=== PATIENT | female | born 1980 | race Caucasian/White ===

== ENCOUNTER 2016-04-19 22:29 | Emergency (ER) | payer BC ==
[~2016-04-19] VITALS: Ht 165.1 cm; Wt 93.9 kg
[~2016-04-19 22:29] MED LIST: CLX/20 PO; LACT10CA3 PO; LATA0.009 OPB; MULT-513 PO; OMEP20CA9 PO
[2016-04-19 22:32] VITALS: TEMP 36.9; Ht 165.1 cm; Wt 93.9 kg
[2016-04-19] MEDS ORDERED: ASPIRIN 324 MG CHEW PO STA (22:44)
[2016-04-19] MEDS ORDERED: MoRPHine SULFATE 4 MG/ML 1 ML CARP\\VIAL IV STA (22:44)
[2016-04-19] MEDS ORDERED: SODIUM CHLORIDE 0.9% 1000ML 1,000 ML IV STA (22:44)
--- NOTE | 2016-04-19 22:50 | EMERGENCY ROOM VISIT NOTE ---
History First contact with patient: 22:36 Chief Complaint: CHEST PAIN Stated Complaint: CHEST PAINS GOING TO THE NECK SICK TO STOMACH History of Present Illness The patient is a 36 year old female who presents to the Emergency Room with complaints of chest pain. The patient states she developed left-sided chest pain suddenly approximately 1 hour ago. She states the pain is in the left side of the chest and radiates into the left shoulder. She states she also has pain in the right shoulder and right jaw. She rates her discomfort a 7/10. The pain is worse with movement of the left arm. It is not worse with walking. She states that she keeps burping. The patient feels very short of breath. She denies any headache or neck pain. She denies any numbness, tingling or weakness. She reports nausea. The patient one on a cruise recently. She did have a 2-1/[address] The patient denies any fever or chills. She denies any falls or injuries. She denies any recent earache, sore throat or cough. She denies any diarrhea. She has had appendectomy and cholecystectomy in the past. Review of Systems A 10 system review of systems was completed with positives and pertinent negatives listed in the HPI. Past Medical/Surgical History Surgical Problems: (1) H/O: hysterectomy (2) S/P tonsillectomy and adenoidectomy Family History Gallbladder disease Heart disease Social History Smoking Status: Never Smoker Alcohol Use: none Drug Use: none Marital Status: Housing Status: lives with family Current/Historical Medications Scheduled Latanoprost (Xalatan 0.005% Oph Yomaira), 1 DROP OPB HS Multivitamins/Minerals (Mvi With Minerals), 1 TAB PO DAILY Scheduled PRN Hydrocodone/Acetaminophen 5MG/325MG ([place] 5MG/325MG), 1 TABLET PO Q6 PRN for Pain Allergies Coded Allergies: Penicillins (Verified Allergy, Intermediate, HIVES, 04/19/16) Physical Exam Vital Signs Date Time Temp Pulse Resp B/P Pulse Ox O2 Delivery O2 Flow Rate FiO2 04/20/16 00:04 81 18 138/92 95 Room Air 04/19/16 22:57 86 04/19/16 22:32 36.9 80 18 149/89 96 Room Air Physical Exam VITALS: Vitals are noted on the nurse's note and reviewed by myself. Vital signs stable. The patient is afebrile. GENERAL: This is a 36-year-old female, in no acute distress, nondiaphoretic, well-developed well-nourished. SKIN: The skin was diaphoretic, without rashes, erythema, edema, or bruising. There is no tenting of the skin. Capillary reflex less than 2 seconds. HEAD: Normocephalic atraumatic. EARS: The external ears are normal in appearance. EYES: Pupils equal round and reactive to light and accommodation. Conjunctivae without injection, sclerae without icterus. Extraocular movements intact. NOSE: Patent, turbinates without inflammation or discharge. MOUTH: Mucous membranes moist. Tonsils are not enlarged. Pharynx without erythema or exudate. Uvula midline. Airway patent. Tongue does not deviate. NECK: Supple without nuchal rigidity. No JVD. HEART: Regular rate and rhythm without murmurs gallops or rubs. LUNGS: Clear to auscultation bilaterally without wheezes, rales or rhonchi. No retractions or accessory muscle use. ABDOMEN: Positive bowel sounds x 4. Soft, nontender, without masses or organomegaly. MUSCULOSKELETAL: No muscle atrophy, erythema, or edema noted. Full range of motion in all extremities. Normal gait. Strength 5/5 throughout. NEURO: Patient was alert and oriented to person place and time. No focal neurological deficits. Medical Decision & Procedures ER Provider Diagnostic Interpretation: CTA of the chest was reviewed by stat read was negative for pulmonary embolus. Laboratory Results 04/19/16 22:57 Red Blood Count 4.60, Mean Corpuscular Volume 88.5, Mean Corpuscular Hemoglobin 30.4, Mean Corpuscular Hemoglobin Concent 34.4, Mean Platelet Volume 9.2, Neutrophils (%) (Auto) 49.3, Lymphocytes (%) (Auto) 42.7, Monocytes (%) (Auto) 4.8, Eosinophils (%) (Auto) 2.8, Basophils (%) (Auto) 0.2, Neutrophils # (Auto) 4.63, Lymphocytes # (Auto) 4.01, Monocytes # (Auto) 0.45, Eosinophils # (Auto) 0.26, Basophils # (Auto) 0.02 04/19/16 22:57 Test 04/19/16 22:57 04/20/16 00:00 04/20/16 00:18 White Blood Count 9.39 K/uL (4.8-10.8) Red Blood Count 4.60 M/uL (4.2-5.4) Hemoglobin 14.0 g/dL (12.0-16.0) Hematocrit 40.7 % (37-47) Mean Corpuscular Volume 88.5 fL (80-100) Mean Corpuscular Hemoglobin 30.4 pg (25-34) Mean Corpuscular Hemoglobin Concent 34.4 g/dl (32-36) Platelet Count 279 K/uL (130-400) Mean Platelet Volume 9.2 fL (7.4-10.4) Neutrophils (%) (Auto) 49.3 % Lymphocytes (%) (Auto) 42.7 % Monocytes (%) (Auto) 4.8 % Eosinophils (%) (Auto) 2.8 % Basophils (%) (Auto) 0.2 % Neutrophils # (Auto) 4.63 K/uL (1.4-6.5) Lymphocytes # (Auto) 4.01 K/uL (1.2-3.4) Monocytes # (Auto) 0.45 K/uL (0.11-0.59) Eosinophils # (Auto) 0.26 K/uL (0-0.5) Basophils # (Auto) 0.02 K/uL (0-0.2) Bedside Hemoglobin 13.6 g/dl (12.0-16.0) Bedside Hematocrit 40 % (37-47) RDW Standard Deviation 41.1 fL (36.4-46.3) RDW Coefficient of Variation 12.8 % (11.5-14.5) Immature Granulocyte % (Auto) 0.2 % Immature Granulocyte # (Auto) 0.02 K/uL (0.00-0.02) Prothrombin Time 10.3 SECONDS (9.0-12.0) Prothromb Time International Ratio 1.0 (0.9-1.1) Activated Partial Thromboplast Time 27.0 SECONDS (21.0-31.0) Partial Thromboplastin Ratio 1.0 Bedside Sodium 140 mEq/L (135-144) Bedside Potassium 4.0 mEq/L (3.3-5.0) Bedside Chloride 104 mEq/L (101-112) Bedside Total CO2 23 mEq/l (24-31) Anion Gap 18.0 mmol/L (16-25) Bedside Blood Urea Nitrogen 17 mg/dl (7-18) Bedside Creatinine 0.7 mg/dl (0.6-1.3) Est Creatinine Clear Calc Drug Dose 108.5 ml/min Estimated GFR () 107.5 Estimated GFR (Non- 92.7 BUN/Creatinine Ratio 18.3 (10-20) Bedside Glucose (other) 112 mg/dl (70-99) Calcium Level 9.2 mg/dl (8.5-10.1) Bedside Ionized Calcium (Srinath) 1.27 mmol/l (1.12-1.32) Total Bilirubin 0.2 mg/dl (0.2-1) Aspartate Amino Transf (AST/SGOT) 26 U/L (15-37) Alanine Aminotransferase (ALT/SGPT) 57 U/L (12-78) Alkaline Phosphatase 76 U/L (45-117) Total Creatine Kinase 297 U/L (26-192) Creatine Kinase MB 2.9 ng/ml (0.5-3.6) Creatine Kinase MB Ratio 1.0 (0-3.0) Total Protein 7.6 gm/dl (6.4-8.2) Albumin 4.0 gm/dl (3.4-5.0) Globulin 3.6 gm/dl (2.5-4.0) Albumin/Globulin Ratio 1.1 (0.9-2) Thyroid Stimulating Hormone (TSH) 3.690 uIu/ml (0.300-4.500) Urine Color YELLOW Urine Appearance CLEAR (CLEAR) Urine pH 6.0 (4.5-7.5) Urine Specific [place] 1.043 (1.000-1.030) Urine Protein NEG (NEG) Urine Glucose (UA) NEG (NEG) Urine Ketones NEG (NEG) Urine Occult Blood NEG (NEG) Urine Nitrite NEG (NEG) Urine Bilirubin NEG (NEG) Urine Urobilinogen NEG (NEG) Urine Leukocyte Esterase NEG (NEG) Medications Administered Medications (Trade) Dose Ordered Sig/Luciano Route Start Time Stop Time Status Last Admin Dose Admin Sodium Chloride (Nss 1000ml) 1,000 ml @ 999 mls/hr Q1H1M STAT IV 04/19/16 22:44 04/19/16 23:44 DC 2/2/17 22:44 999 MLS/HR Morphine Sulfate (MoRPHine SULFATE INJ) 4 mg NOW STAT IV 04/19/16 22:44 04/19/16 22:47 DC 04/19/16 22:44 4 MG Aspirin (Aspirin Chew) 324 mg NOW STAT PO 04/19/16 22:44 04/19/16 22:47 DC 04/19/16 22:44 324 MG Ketorolac Tromethamine (Toradol Inj) 30 mg NOW STAT IV 04/20/16 00:15 04/20/16 00:16 DC 04/20/16 00:15 30 MG Procedure The patient was monitored on a child monitor. They maintained a normal sinus rhythm without ectopy. ECG Indication: chest pain Rate (beats per minute): 76 Rhythm: normal sinus Findings: no acute ischemic change Change: no significant change ED Course The patient was seen and examined. Previous visits were reviewed. The patient does not have a fever or leukocytosis. She does not have any significant electrolyte abnormality. Initial troponin was not elevated. TSH was within normal limits. CPK was 297. INR was 1.0. CTA of the chest was negative for pulmonary embolus EKG did not reveal any acute arrhythmia or ischemia The patient was given 4 mg IV morphine with improvement in her pain She was then given 30 mg IV Toradol A repeat troponin was ordered. At the time of sign out, the repeat troponin was pending. A urinalysis was pending. The case was signed out to Alicia Chapa PA-C. Please see her dictation for results and disposition. I did reassess the patient before sign out. The patient is markedly tender to palpation over the chest wall on the pain is completely reproducible with palpation and movement of the left arm. This is likely musculoskeletal in nature. The patient will be given a prescription for Agendia. She should follow- up with her family doctor for further evaluation and management if symptoms are not improving. She should return with any worsening symptoms. Medical Decision DIFFERENTIAL DIAGNOSIS: Aortic dissection, myocarditis, pericarditis, cervical disc disease, costochondritis, herpes zoster, rib fracture, pleuritis, pneumonia , pulmonary embolus, tension pneumothorax, anxiety disorder, somatoform disorder , choledocholithiasis, status, esophagitis, esophageal spasm, esophageal reflux , esophageal rupture, pancreatitis, peptic ulcer disease, cardiac ischemia, ST elevation CT, acute coronary syndrome, arrhythmia, coronary artery vasospasm. vavular heart disease, coronary artery disease, among others. [facility] [facility] Monitoring [facility] Search Results: patient reviewed within database, no issues identified Impression Primary Impression: Chest wall pain Additional Impressions: Dyspnea Precordial chest pain Departure Information Dispostion Home / Self-Care Condition GOOD Prescriptions Hydrocodone/Acetaminophen 5MG/325MG ([place] 5MG/325MG) Tab 1 TABLET PO Q6 Y for Pain, #12 TAB For Initial Treatment Prov: Heidy Kaur PA-C 04/20/16 Referrals RV. Frazier MD (PCP) Patient Instructions Chest [facility] - [facility] Additional Instructions Ibuprofen 600 mg every 6-8 hours for moderate pain [place] 1 tablet every 6 hours if needed for worse pain. Do not drink or drive while taking [place] and do not take with Tylenol. Contact your family doctor tomorrow to schedule a follow-up appointment for further evaluation and management Return to the emergency Department with any worsening symptoms Problem Qualifiers Additional Impressions: Dyspnea Dyspnea type: shortness of breath Qualified Codes: R06.02 - Shortness of breath
[2016-04-19] MEDS ORDERED: OPTIRAY 320 IV PRN (23:15)
[2016-04-19 23:17] LABS: BASO % 0.2 %; BASO ABS # 0.02 K/uL (0-0.2); COMPLETE YES; EOS % 2.8 %; HEMATOCRIT 40.7 % (37-47); IG% 0.2 %; LYMPH % 42.7 %; LYMPH ABS # 4.01 K/uL (1.2-3.4); MEAN CELL VOLUME 88.5 fL (80-100); MEAN CORPUSCULAR HEMOGLOBIN 30.4 pg (25-34); MEAN CORPUSCULAR HGB CONC 34.4 g/dl (32-36); MEAN PLATELET VOLUME 9.2 fL (7.4-10.4); MONO % 4.8 %; NEUT % 49.3 %; PLATELET COUNT 279 K/uL (130-400); WHITE BLOOD COUNT 9.39 K/uL (4.8-10.8)
[2016-04-19 23:29] LABS: ISTAT CREATININE 0.7 mg/dl (0.6-1.3); ISTAT HEMOGLOBIN 13.6 g/dl (12.0-16.0); ISTAT IONIZED CALCIUM 1.27 mmol/l (1.12-1.32)
[2016-04-19 23:34] LABS: PROTHROMBIN TIME (PATIENT) 10.3 SECONDS (9.0-12.0)
[2016-04-19 23:36] LABS: ALT/SGPT 57 U/L (12-78); BLOOD UREA NITROGEN 15 mg/dl (7-18); BUN/CREATININE RATIO 18.3 (10-20); CALCIUM 9.2 mg/dl (8.5-10.1); CARBON DIOXIDE 24 mmol/L (21-32); CHLORIDE 107 mmol/L (98-107); CREATININE 0.82 mg/dl (0.60-1.20); GLUCOSE 104 mg/dl (70-99); SODIUM 140 mmol/L (136-145)
[2016-04-19 23:46] LABS: ALB/GLOB RATIO 1.1 (0.9-2); ALKALINE PHOSPHATASE 76 U/L (45-117); AST/SGOT 26 U/L (15-37)
[2016-04-20] MEDS ORDERED: KETOROLAC TROMETHAMINE 30 MG/ML VIAL IV STA (00:15)
[2016-04-20 00:37] LABS: URINE APPEARANCE CLEAR (CLEAR); URINE BILIRUBIN NEG (NEG); URINE COLOR YELLOW; URINE NITRITE NEG (NEG); URINE SPECIFIC GRAVITY 1.043 (1.000-1.030); UROBILINOGEN NEG (NEG); ZZUR CULT IF INDIC CLEAN CATCH NO
[2016-04-20] MEDS ORDERED: HYDR-5688 PO (00:39)
[2016-04-20 00:43] LABS: MANUAL MICROSCOPIC REQUIRED? NO; REVIEW REQ? NO
[2016-04-20] MEDS ORDERED: NORCO 5/325MG HOME PACK PO ONE (00:45)
--- NOTE | 2016-04-20 01:21 | EMERGENCY ROOM VISIT NOTE ---
ED Visit Note This case was signed out to me pending repeat troponin and reevaluation in stable condition. Patient had episode of chest pain today. 2 sets of negative troponins. Unremarkable workup as above. Negative CTA. Diagnosis #1 acute precordial chest pain Ibuprofen(Motrin, Advil) may be used for fever or pain. Use 600mg every six hours as needed. Take with food. Avoid using more than 2400mg in a 24 hour period. Do not use 2400mg per day for more than three consecutive days without physician direction. Prolonged inappropriate use can lead to stomach upset or ulcers. (AND/OR) Acetaminophen(Tylenol) may be used for fever or pain. Use 1000mg every six hours as needed. Avoid using more than 3000mg in a 24 hour period. Rest and drink plenty of fluids as tolerated. Continue current medications. Avoid strenuous activities and anything that worsens your pain. Resume normal activities once your symptoms resolve. Return to the ER immediately for worsening or persistent chest pain, abdominal pain, vomiting, fevers, chest pains, difficulty breathing, worsening of your condition, or as needed. Follow up with your primary physician in 2-3 days for a recheck of your current condition. Problem List Surgical Problems: (1) H/O: hysterectomy Status: Resolved (2) S/P tonsillectomy and adenoidectomy Status: Resolved Current/Historical Medications Scheduled Latanoprost (Xalatan 0.005% Oph Yomaira), 1 DROP OPB HS Multivitamins/Minerals (Mvi With Minerals), 1 TAB PO DAILY Scheduled PRN Hydrocodone/Acetaminophen 5MG/325MG ([place] 5MG/325MG), 1 TABLET PO Q6 PRN for Pain Allergies Coded Allergies: Penicillins (Verified Allergy, Intermediate, HIVES, 04/19/16) Vital Signs Date Time Temp Pulse Resp B/P Pulse Ox O2 Delivery O2 Flow Rate FiO2 04/20/16 00:04 81 18 138/92 95 Room Air 04/19/16 22:57 86 04/19/16 22:32 36.9 80 18 149/89 96 Room Air Laboratory Results 04/19/16 22:57 Red Blood Count 4.60, Mean Corpuscular Volume 88.5, Mean Corpuscular Hemoglobin 30.4, Mean Corpuscular Hemoglobin Concent 34.4, Mean Platelet Volume 9.2, Neutrophils (%) (Auto) 49.3, Lymphocytes (%) (Auto) 42.7, Monocytes (%) (Auto) 4.8, Eosinophils (%) (Auto) 2.8, Basophils (%) (Auto) 0.2, Neutrophils # (Auto) 4.63, Lymphocytes # (Auto) 4.01, Monocytes # (Auto) 0.45, Eosinophils # (Auto) 0.26, Basophils # (Auto) 0.02 04/19/16 22:57 Test 04/19/16 22:57 04/20/16 00:00 04/20/16 00:38 White Blood Count 9.39 K/uL (4.8-10.8) Red Blood Count 4.60 M/uL (4.2-5.4) Hemoglobin 14.0 g/dL (12.0-16.0) Hematocrit 40.7 % (37-47) Mean Corpuscular Volume 88.5 fL (80-100) Mean Corpuscular Hemoglobin 30.4 pg (25-34) Mean Corpuscular Hemoglobin Concent 34.4 g/dl (32-36) Platelet Count 279 K/uL (130-400) Mean Platelet Volume 9.2 fL (7.4-10.4) Neutrophils (%) (Auto) 49.3 % Lymphocytes (%) (Auto) 42.7 % Monocytes (%) (Auto) 4.8 % Eosinophils (%) (Auto) 2.8 % Basophils (%) (Auto) 0.2 % Neutrophils # (Auto) 4.63 K/uL (1.4-6.5) Lymphocytes # (Auto) 4.01 K/uL (1.2-3.4) Monocytes # (Auto) 0.45 K/uL (0.11-0.59) Eosinophils # (Auto) 0.26 K/uL (0-0.5) Basophils # (Auto) 0.02 K/uL (0-0.2) Bedside Hemoglobin 13.6 g/dl (12.0-16.0) Bedside Hematocrit 40 % (37-47) RDW Standard Deviation 41.1 fL (36.4-46.3) RDW Coefficient of Variation 12.8 % (11.5-14.5) Immature Granulocyte % (Auto) 0.2 % Immature Granulocyte # (Auto) 0.02 K/uL (0.00-0.02) Prothrombin Time 10.3 SECONDS (9.0-12.0) Prothromb Time International Ratio 1.0 (0.9-1.1) Activated Partial Thromboplast Time 27.0 SECONDS (21.0-31.0) Partial Thromboplastin Ratio 1.0 Bedside Sodium 140 mEq/L (135-144) Bedside Potassium 4.0 mEq/L (3.3-5.0) Bedside Chloride 104 mEq/L (101-112) Bedside Total CO2 23 mEq/l (24-31) Anion Gap 18.0 mmol/L (16-25) Bedside Blood Urea Nitrogen 17 mg/dl (7-18) Bedside Creatinine 0.7 mg/dl (0.6-1.3) Est Creatinine Clear Calc Drug Dose 108.5 ml/min Estimated GFR () 107.5 Estimated GFR (Non- 92.7 BUN/Creatinine Ratio 18.3 (10-20) Bedside Glucose (other) 112 mg/dl (70-99) Calcium Level 9.2 mg/dl (8.5-10.1) Bedside Ionized Calcium (Srinath) 1.27 mmol/l (1.12-1.32) Total Bilirubin 0.2 mg/dl (0.2-1) Aspartate Amino Transf (AST/SGOT) 26 U/L (15-37) Alanine Aminotransferase (ALT/SGPT) 57 U/L (12-78) Alkaline Phosphatase 76 U/L (45-117) Total Creatine Kinase 297 U/L (26-192) Creatine Kinase MB 2.9 ng/ml (0.5-3.6) Creatine Kinase MB Ratio 1.0 (0-3.0) Total Protein 7.6 gm/dl (6.4-8.2) Albumin 4.0 gm/dl (3.4-5.0) Globulin 3.6 gm/dl (2.5-4.0) Albumin/Globulin Ratio 1.1 (0.9-2) Thyroid Stimulating Hormone (TSH) 3.690 uIu/ml (0.300-4.500) Urine Color YELLOW Urine Appearance CLEAR (CLEAR) Urine pH 6.0 (4.5-7.5) Urine Specific [place] 1.043 (1.000-1.030) Urine Protein NEG (NEG) Urine Glucose (UA) NEG (NEG) Urine Ketones NEG (NEG) Urine Occult Blood NEG (NEG) Urine Nitrite NEG (NEG) Urine Bilirubin NEG (NEG) Urine Urobilinogen NEG (NEG) Urine Leukocyte Esterase NEG (NEG) Troponin I < 0.015 ng/ml (0-0.045) Medications Administered Medications (Trade) Dose Ordered Sig/Luciano Route Start Time Stop Time Status Last Admin Dose Admin Sodium Chloride (Nss 1000ml) 1,000 ml @ 999 mls/hr Q1H1M STAT IV 04/19/16 22:44 04/19/16 23:44 DC 04/19/16 22:44 999 MLS/HR Morphine Sulfate (MoRPHine SULFATE INJ) 4 mg NOW STAT IV 04/19/16 22:44 04/19/16 22:47 DC 04/19/16 22:44 4 MG Aspirin (Aspirin Chew) 324 mg NOW STAT PO 04/19/16 22:44 04/19/16 22:47 DC 04/19/16 22:44 324 MG Ketorolac Tromethamine (Toradol Inj) 30 mg NOW STAT IV 04/20/16 00:15 04/20/16 00:16 DC 04/20/16 00:15 30 MG Departure Information Impression Primary Impression: Chest wall pain Additional Impressions: Precordial chest pain Dyspnea Dispostion Home / Self-Care Condition GOOD Prescriptions Hydrocodone/Acetaminophen 5MG/325MG ([place] 5MG/325MG) Tab 1 TABLET PO Q6 Y for Pain, #12 TAB For Initial Treatment Prov: Heidy Kaur PA-C 04/20/16 Referrals RV. Frazier MD (PCP) Patient Instructions Chest Pain - [facility] Additional Instructions Ibuprofen 600 mg every 6-8 hours for moderate pain [place] 1 tablet every 6 hours if needed for worse pain. Do not drink or drive while taking [place] and do not take with Tylenol. Contact your family doctor tomorrow to schedule a follow-up appointment for further evaluation and management Return to the emergency Department with any worsening symptoms Problem Qualifiers
[2016-04-20 01:35] VITALS: BP 123/69; PULSE 73; O2SAT 96
--- NOTE | 2016-04-20 07:22 | DIAGNOSTIC IMAGING REPORT ---
SINGLE VIEW CHEST CLINICAL HISTORY: Atypical chest pain. FINDINGS: An AP, portable, upright chest radiograph is compared to study dated 04/22/14. The examination is degraded by portable technique and patient rotation. The cardiomediastinal silhouette is unremarkable. There are low lung volumes with bibasilar atelectasis. The lungs and pleural spaces are otherwise clear. No pneumothorax is seen. The bony thorax is grossly intact. IMPRESSION: Low lung volumes with no active disease in the chest. Electronically signed by: Adama Loera M.D. 04/20/2016 7:20 AM Dictated Date/Time: 04/20/2016 7:20 AM
--- NOTE | 2016-04-20 07:25 | DIAGNOSTIC IMAGING REPORT ---
CT ANGIOGRAM OF THE CHEST CLINICAL HISTORY: Atypical chest pain. COMPARISON STUDY: Chest radiograph dated 04/19/2016. TECHNIQUE: Following the IV administration of 105 cc of Optiray 320, CT angiogram of the chest was performed from the upper abdomen to the thoracic inlet utilizing the pulmonary embolus protocol. Images are reviewed in the axial, sagittal, and coronal planes. 3-D MIPS images are created and assessed. IV contrast was administered without complication. CT DOSE: 516.95 mGy.cm FINDINGS: Thyroid: Imaged portions of the thyroid gland are normal in size and attenuation. Thoracic aorta: The thoracic aorta is normal in caliber and demonstrates standard 3-vessel arch anatomy. No dissection is seen. Pulmonary vasculature: The pulmonary trunk is normal in caliber. There are no filling defects identified in main, lobar, or segmental pulmonary branches to suggest pulmonary embolus. Heart: The heart is normal in size and configuration, and without pericardial effusion. Lungs and pleural spaces: There is bibasilar atelectasis. The lungs and pleural spaces are otherwise clear. The trachea and central airways are patent. Mediastinum: There is no mediastinal lymphadenopathy. Clementina: Clear. Axillae: There is no axillary lymphadenopathy. Upper abdomen: The liver is enlarged and there is severe hepatic steatosis. A small hiatal hernia is noted. Partially visualized upper abdominal viscera is otherwise within normal limits. Skeletal structures: No lytic or blastic bony lesions are seen. IMPRESSION: 1. There is no evidence of pulmonary embolus in the main, lobar, or segmental pulmonary arteries. 2. Low lung volumes with bibasilar atelectasis. The lungs are otherwise clear. 3. Hepatomegaly and severe hepatic steatosis. Electronically signed by: Adama Loera M.D. 04/20/2016 7:24 AM Dictated Date/Time: 04/20/2016 7:21 AM
== END 2016-04-20 01:37 | disposition hospice, home (50) ==
LOC: C.EDB 22:30 → C.EDA 04-20 01:37
DX: R07.2 Precordial pain (principal); R06.02 Shortness of breath; Z82.49 Family history of ischemic heart disease and other diseases of the circulatory system

== ENCOUNTER → 2016-04-23 | Outpatient (CLI) | payer BC ==
[~2016-04-23] MED LIST changes: -CLX/20 PO; +HYDR-5688 PO; -LACT10CA3 PO; -OMEP20CA9 PO
[2016-04-23 11:28] LABS: BLOOD UREA NITROGEN 12 mg/dl (7-18); BUN/CREATININE RATIO 17.4 (10-20); CARBON DIOXIDE 25 mmol/L (21-32); CHLORIDE 108 mmol/L (98-107); CREATININE 0.66 mg/dl (0.60-1.20); GLUCOSE 100 mg/dl (70-99); POTASSIUM 4.1 mmol/L (3.5-5.1); SODIUM 143 mmol/L (136-145)
== END | disposition home or self-care (01) ==
LOC: C.LAB1850 09:22
PROVIDERS: ATTEND Internal Medicine
DX: R74.8 Abnormal levels of other serum enzymes (principal)

== ENCOUNTER → 2016-11-08 | Outpatient (CLI) | payer BC ==
[~2016-11-08] MED LIST changes: -HYDR-5688 PO
[2016-11-08 18:13] LABS: PROLACTIN 5.9 ng/mL
== END | disposition home or self-care (01) ==
LOC: C.LAB1850 16:48
PROVIDERS: ATTEND Obstetrics & Gynecology
DX: N64.4 Mastodynia (principal); R23.2 Flushing; R51 Headache

== ENCOUNTER → 2016-11-12 | Outpatient (CLI) | payer BC ==
--- NOTE | 2016-11-12 13:49 | MAMMOGRAPHY REPORT ---
BILATERAL DIGITAL DIAGNOSTIC MAMMOGRAM TOMOSYNTHESIS WITH CAD AND TARGETED BILATERAL ULTRASOUND: 11/12 CLINICAL HISTORY: 36-year-old woman presents with bilateral breast pain, mostly along the lateral asp ects of the breasts. No palpable mass, skin changes or nipple discharge. TECHNIQUE: Bilateral breast tomosynthesis in addition to standard 2D mammography was performed. Curre nt study was also evaluated with a Computer Aided Detection (CAD) system. COMPARISON: No prior exams were available for comparison. BREAST COMPOSITION: The tissue of both breasts is heterogeneously dense, which may obscure small mas ses. FINDINGS: There is a 16 x 6 mm fusiform partially circumscribed mass in the lateral, middle one third of the right breast, only seen on the CC view (tomosynthesis slice 25/84). Further characterization with ultrasound was performed. No other obvious mass, architectural distortion or cluster of microc alcifications is seen bilaterally. Targeted ultrasound was performed in the lateral right breast to assess for the 16 x 6 mm mammographi c mass, and also in both breasts to evaluate the bilateral nonfocal mastalgia. In the 10:00 right br east, to 7 m from the nipple, there is a cyst cluster versus collocated cyst that is oval and paralle l in orientation. It measures 9.7 x 3.7 x 9.3 mm and is benign. There is a second similar appearing cyst cluster versus, located cyst in the 10:00 right breast, 3 cm from the nipple, more superficial in location, measuring 9.3 x 3.9 by approximately 9.5 mm. This is thought to correlate with the mamm ographic mass and is benign. Ultrasound in the far lateral right breast, 8:00, 9:00 and 10:00 axes, 9 cm from the nipple in the ar ea of pain pointed out by the patient, there is sonographically normal tissue without evidence of a s uspicious solid or cystic mass. Likewise in the left 1:00, 2:00 and 3:00 axes, 9 cm from the nipple, in the areas of pain pointed out by the patient, a few sonographically normal intramammary lymph nod es are identified, without evidence of a suspicious solid or cystic mass. IMPRESSION: ACR BI-RADS CATEGORY 2: BENIGN, TARGETED ULTRASOUND ACR BI-RADS CATEGORY 2: BENIGN 1. There is no suspicious mammographic or sonographic abnormality in the lateral aspect of each avni st to explain the nonfocal pain described by the patient. Conservative management with mineral suppl ements, evening primrose oil, NSAIDs and heat were discussed with the patient. Clinical follow-up is also recommended. 2. A lobulated and circumscribed mammographic mass in the lateral right breast corresponds to a cyst cluster versus complicated cyst on ultrasound. Incidental note was made of a second similar appearin g benign cyst cluster versus complicated cyst on ultrasound, also in the 10:00 axis. These findings are compatible with benign fibrocystic changes and no further close follow-up is needed at this time. These results and recommendations were discussed with the patient at the time of the exam. Approximately 10% of breast cancers are not detected with mammography. A negative mammographic report should not delay biopsy if a clinically suggestive mass is present. Archana Johnson M.D. ay/:11/12/2016 11:10:28 Body Mechanic: Cira MCCLELLAN)([place]), [facility] letter sent: Normal 1/2 BI-RADS Code: ACR BI-RADS Category 2: Benign Ultrasound BI-RADS: ACR BI-RADS Category 2: Benign
== END | disposition home or self-care (01) ==
LOC: C.MAMM 07:55
PROVIDERS: ATTEND Obstetrics & Gynecology
DX: N64.4 Mastodynia (principal); N63 Unspecified lump in breast

== ENCOUNTER 2020-02-10 15:33 | Inpatient (IN) ==
[2020-02-10] MEDS ORDERED: cefTRIAXone SODIUM 2,000 MG/70 ML BAG IV STA (16:52)
--- NOTE | 2020-02-10 16:53 | XRay Report ---
XR chest 1V portable CLINICAL HISTORY: Dyspnea COMPARISON STUDY: 02/08/2020 FINDINGS: The cardiac and mediastinal contours remain stable. There are progressive bilateral pulmona ry airspace opacities, suggestive of a multifocal pneumonia. Clinical and radiographic follow-up is r ecommended. There is blunting of the right lateral costophrenic angle a small effusion cannot be excl uded.[ IMPRESSION: Progressive bilateral pulmonary airspace opacities suspicious for a worsening multifocal pneumonia. ACT 112: Negative or not required by law. Electronically signed by: Wes Rios M.D. 02/10/2020 4:51 PM
[2020-02-10 16:57] LABS: Basophils # (auto) 0.02 K/uL (0-0.2); Basophils % (auto) 0.3 %; Hematocrit (blood only) 43.3 % (37-47); Hemoglobin 14.5 g/dL (12.0-16.0); Immature Granulocytes # (auto) 0.02 K/uL (0.00-0.02); Immature Granulocytes % (auto) 0.3 %; Lymphocytes % (auto) 37.3 %; Mean Corpuscular Hemoglobin 31.5 pg (25-34); Mean Corpuscular Hgb Conc 33.5 g/dL (32-36); Mean Corpuscular Volume 93.9 fL (80-100); Mean Platelet Volume 9.2 fL (7.4-10.4); Monocytes # (auto) 0.35 K/uL (0.11-0.59); Monocytes % (auto) 5.9 %; Neutrophils # (auto) 3.31 K/uL (1.4-6.5); Neutrophils % (auto) 56.2 %; Platelet Count 276 K/uL (130-400); RDW Coefficient of Variation 13.2 % (11.5-14.5); RDW Standard Deviation 45.2 fL (36.4-46.3); Red Blood Count 4.61 M/uL (4.2-5.4)
--- NOTE | 2020-02-10 16:58 | Emergency Department Note ---
Impression & Plan Pneumonia, Chest pain, pleuritic, COVID-19 ED Provider Note INFORMANT: Patient ED PROVIDER(S): Varinder Lewis MD CHIEF COMPLAINT: Shortness of breath PLAN: Disposition: Admitted Condition: Good MEDICAL DECISION MAKING: Patient presented with a previous diagnosis of Covid and pneumonia. She noted hypoxia at home. Her saturations in emergency department were 92%. She felt significantly better and her oxygen saturations went up to 98% with supplemental nasal cannula oxygen. She did note significant chest pain. She declined analgesia. She also had some vomiting overnight and declined any nausea medication. She was hydrated. A chest x-ray was performed and shows worsening right-sided pneumonia despite initial treatment with Zithromax and now doxycycline. CT PE study was performed to confirm the pneumonia but no evidence of pulmonary embolism. Given the patient's low oxygen she qualifies for severe disease. Patient was given dexamethasone, Rocephin, and vancomycin. Internal medicine was consulted for admission. Triage Nursing notes reviewed and agree them. Prior medical records reviewed regarding outpatient treatment. Vital Signs: reviewed and remarkable for low oxygen levels. Differential diagnosis: Reactive airway disease, pneumonia, pneumothorax, COPD, CHF, infections, cardiac ischemia, pulmonary embolism, musculoskeletal, gastrointestinal, as well as other pathologies. Diagnostics interpreted by me: ECG: Twelve-lead ECG reveals normal sinus rhythm at 62 bpm. Poor R progression noted. No ST elevation or depression. No PACs or PVCs. Normal axis and inter vals. Cardiac Monitoring: Cardiac monitoring ordered by me: The patient was placed on continuous cardiac monitoring and observed. It revealed a normal sinus rhythm at 70 beats per minute without ectopy or evidence of dysrhythmia. Imaging studies: Chest x-ray concerning for worsening pneumonia. CT angiogram of the chest performed and revealed no pulmonary embolism however there is significant multifocal pneumonia present. Consultation(s): Dr. Albert of internal medicine HPI: The patient is a 40 year old female who presents to the Emergency Room with complaints of shortness of. This started 3 days and is worsening. The patient also notes the following associated symptoms, pleuritic chest pain, fatigue, diarrhea. The patient has been using doxycycline relieving factors. Current pain is rated as 6/10. The patient was diagnosed with pneumonia as well as COVID-19. She was initially started on Zithromax and now doxycycline. Pt denies LOC, headache, fevers, chills, diaphoresis, visual changes, neck pain, abdominal pain, back pain, melena, hematochezia, urinary symptoms, numbness, weakness, lymphadenopathy, rash, or other complaints. ROS: See above HPI for pertinent positives & negatives. A total of 10 systems reviewed and were otherwise negative. PAST MEDICAL HISTORY:See Below, patient did not PAST SURGICAL HISTORY:See Below, FAMILY HISTORY:See Below SOCIAL HISTORY:See Below, HOME MEDICATIONS:See Below ALLERGIES:See Below VITALS:See Below PHYSICAL EXAMINATION: GENERAL: Awake, tired-appearing, in no distress HENT: Normocephalic, atraumatic. Oropharynx unremarkable. EYES: Normal conjunctiva. Sclera non-icteric. NECK: Inspection normal. Non-tender. Supple. No nuchal rigidity. FROM. No masses. RESPIRATORY: Relatively clear to auscultation. No wheezes. Right-sided rales. Increased respiratory effort. CARDIAC: Normal rate. Normal rhythm. No murmurs. No rubs. Extremities warm and well perfused. Pulses equal. No JVD. GI: Soft, non-distended. No tenderness to palpation. No rebound or guarding. No masses. RECTAL: Deferred. MUSCULOSKELETAL: Atraumatic. Chest examination reveals no tenderness. The back is symmetrical on inspection without obvious abnormality. There is no CVA tenderness to palpation. No joint edema. LOWER EXTREMITIES: Calves are equal size bilaterally and non-tender. No edema. No discoloration. NEURO: Normal sensorium. No sensory or motor deficits noted. SKIN: No rash or jaundice noted. ED COURSE: PDMP: Reviewed and no issues Critical Care: I have personally spent greater than 31 minutes of critical care time in the direct management of this patient. This includes bedside care, interpretation of diagnostic studies, and testing, discussion with consultants, patient, and other required patient management activities. These minutes are in excess of all separately billable procedures. Varinder Lewis MD Past Med/Surg History Medical History Abnormal TSH Elevated creatine kinase Encounter for gynecological examination without abnormal finding Glaucoma H/O appendicitis Headache Intermittent fever of unknown origin Menopausal symptoms Otitis externa Otitis media Postcholecystectomy diarrhea Thyroid nodule Surgical History H/O oral surgery H/O tonsillitis H/O: hysterectomy H/O: hysterectomy S/P appendectomy S/P cholecystectomy S/P hysterectomy S/P tonsillectomy S/P tonsillectomy and adenoidectomy S/P tubal ligation S/P tube myringotomy Family History Brother Hypertension Grandfather (Paternal) Diabetes Mother Thyroid disorder Graves disease Grandmother (Maternal) Hypertension Breast cancer Denies family history of Ovarian cancer Prostate cancer Myocardial infarction Colorectal cancer Social History Smoking Status: Never smoker Hx Alcohol Use: No Hx Substance Use: No Preferred Language: Tajik Communication Ability: Effective Carburetor Repairer Required: No Beliefs That Will Affect Care: None Current Living Situation: Spouse Current Living Situation Comment: family Feels Safe at Home: Yes Assistive Devices: None Allergies Allergies Allergy/AdvReac Type Severity Reaction Status Date / Time Penicillins Allergy Intermediate HIVES Verified 02/10/20 18:56 Home Meds Home Medications Medication Instructions Recorded Confirmed multivitamin 1 tab PO DAILY 10/13/18 02/10/20 latanoprost 0.005 % eye drops 1 drops OPB QPM ml 01/04/19 02/10/20 timolol maleate 0.5 % eye drops 1 drops OPB DAILY ml 01/04/19 02/10/20 buspirone 7.5 mg tablet 7.5 mg PO BID 01/01/20 02/10/20 topiramate 50 mg tablet 50 mg PO DAILY tab 01/01/20 02/10/20 dextromethorphan HBr [Delsym] 0 mg PO Q12 PRN 02/10/20 02/10/20 ibuprofen 600 mg PO TID PRN 02/10/20 02/10/20 Previous Rx's Medication Instructions Recorded cholecalciferol (vitamin D3) 125 5,000 units PO DAILY #30 cap 01/06/19 mcg (5,000 unit) capsule citalopram 40 mg tablet 40 mg PO DAILY #90 tab 01/06/19 methylprednisolone 4 mg tablets in See Rx Instructions .ROUTE 02/05/20 a dose pack .COMPLEX #21 ea albuterol sulfate 90 mcg/actuation 2 inh INHALATION Q8H PRN #6.7 g 02/09/20 aerosol inhaler doxycycline hyclate 100 mg tablet 100 mg PO BID 10 Days #20 tab 02/09/20 Results & Data (ED) Vital Signs Vital Signs - 24 hr 02/10/20 15:38 02/10/20 16:06 02/10/20 16:36 Pulse Rate 70 66 Pulse Rate from SpO2 Sensor 65 Respiratory Rate 18 18 Respiratory Effort / Characteristics Non-Labored Spontaneous Respiratory Depth Normal Respiratory Pattern Regular Blood Pressure 109/71 106/73 Blood Pressure Mean 83 78 Blood Pressure Position Sitting Pulse Oximetry 93 97 Oxygen Delivery Method Room Air Room Air Nasal Cannula Oxygen Flow Rate 2 Sepsis Recent Fever Within 48 Hours No Sepsis New/Unexplained Change in Mental Status N/A Sepsis Action Taken by Nursing No Action Required Oxygen Flow Rate - Titration Pulse Oximetry Post Tiitration 02/10/20 16:46 02/10/20 17:00 02/10/20 17:30 Pulse Rate 69 67 Pulse Rate from SpO2 Sensor 69 66 Respiratory Rate 20 22 Respiratory Effort / Characteristics Respiratory Depth Respiratory Pattern Blood Pressure 103/75 109/68 Blood Pressure Mean 83 83 Blood Pressure Position Pulse Oximetry 92 96 96 Oxygen Delivery Method Room Air Nasal Cannula Nasal Cannula Nasal Cannula Oxygen Flow Rate 0 2 2 Sepsis Recent Fever Within 48 Hours Sepsis New/Unexplained Change in Mental Status Sepsis Action Taken by Nursing Oxygen Flow Rate - Titration 2 Pulse Oximetry Post Tiitration 96 02/10/20 18:30 Pulse Rate 70 Pulse Rate from SpO2 Sensor 70 Respiratory Rate 18 Respiratory Effort / Characteristics Respiratory Depth Respiratory Pattern Blood Pressure 123/78 Blood Pressure Mean 94 Blood Pressure Position Pulse Oximetry 96 Oxygen Delivery Method Nasal Cannula Oxygen Flow Rate 2 Sepsis Recent Fever Within 48 Hours Sepsis New/Unexplained Change in Mental Status Sepsis Action Taken by Nursing Oxygen Flow Rate - Titration Pulse Oximetry Post Tiitration Laboratory Data Result diagrams: 02/10/20 16:21 02/10/20 16:21 Lab Results 02/10/20 02/10/20 02/10/20 Range/Units 16:21 16:21 16:21 WBC 5.90 (4.8-10.8) K/uL RBC 4.61 (4.2-5.4) M/uL Hgb 14.5 (12.0-16.0) g/dL Hct 43.3 (37-47) % MCV 93.9 (80-100) fL MCH 31.5 (25-34) pg MCHC 33.5 (32-36) g/dL RDW Std Deviation 45.2 (36.4-46.3) fL RDW Coeff of Dannie 13.2 (11.5-14.5) % Plt Count 276 (130-400) K/uL MPV 9.2 (7.4-10.4) fL Immature Gran % (Auto) 0.3 % Neut % (Auto) 56.2 % Lymph % (Auto) 37.3 % [place] % (Auto) 5.9 % Eos % (Auto) 0.0 % Baso % (Auto) 0.3 % Neut # (Auto) 3.31 (1.4-6.5) K/uL Lymph # (Auto) 2.20 (1.2-3.4) K/uL [place] # (Auto) 0.35 (0.11-0.59) K/uL Eos # (Auto) 0.00 (0-0.5) K/uL Baso # (Auto) 0.02 (0-0.2) K/uL Immature Gran # (Auto) 0.02 (0.00-0.02) K/uL PT 10.9 (9.0-12.0) Seconds INR 1.0 (0.9-1.1) APTT 31.3 H (21.0-31.0) Seconds PTT Ratio 1.1 D-Dimer 520 H* (0-500) ug/L FEU Sodium 138 (136-145) mmol/L Potassium 3.6 (3.5-5.1) mmol/L Chloride 106 (98-107) mmol/L Carbon Dioxide 28 (21-32) mmol/L Anion Gap 4.0 (3-11) BUN 14 (7-18) mg/dl Creatinine 0.75 (0.6-1.2) mg/dl Est Cr Clr Drug Dosing 113.7 ml/min Est GFR ( Amer) 116.4 Est GFR (Non-Af Amer) 100.4 BUN/Creatinine Ratio 19.3 (10-20) Glucose 104 H (70-99) mg/dl Calcium 8.7 (8.5-10.1) mg/dl Phosphorus (2.5-4.9) mg/dl Magnesium 2.0 (1.8-2.4) mg/dl Ferritin (8-388) ng/ml Total Bilirubin 0.4 (0.2-1) mg/dl AST 23 (15-37) U/L ALT 39 (12-78) U/L Alkaline Phosphatase 74 (45-117) U/L Lactate Dehydrogenase (84-246) U/L Troponin I < 0.015 (0-0.045) ng/ml C-Reactive Protein (0-0.29) mg/dl NT-Pro-B Natriuret Pep (0-450) pg/ml Total Protein 7.7 (6.4-8.2) gm/dl Albumin 3.6 (3.4-5.0) gm/dl Globulin 4.1 H (2.5-4.0) gm/dl Albumin/Globulin Ratio 0.9 (0.9-2) Procalcitonin (0-0.5) ng/ml 02/10/20 02/10/20 02/10/20 Range/Units 16:21 16:21 16:23 WBC (4.8-10.8) K/uL RBC (4.2-5.4) M/uL Hgb (12.0-16.0) g/dL Hct (37-47) % MCV (80-100) fL MCH (25-34) pg MCHC (32-36) g/dL RDW Std Deviation (36.4-46.3) fL RDW Coeff of Dannie (11.5-14.5) % Plt Count (130-400) K/uL MPV (7.4-10.4) fL Immature Gran % (Auto) % Neut % (Auto) % Lymph % (Auto) % [place] % (Auto) % Eos % (Auto) % Baso % (Auto) % Neut # (Auto) (1.4-6.5) K/uL Lymph # (Auto) (1.2-3.4) K/uL [place] # (Auto) (0.11-0.59) K/uL Eos # (Auto) (0-0.5) K/uL Baso # (Auto) (0-0.2) K/uL Immature Gran # (Auto) (0.00-0.02) K/uL PT (9.0-12.0) Seconds INR (0.9-1.1) APTT (21.0-31.0) Seconds PTT Ratio D-Dimer (0-500) ug/L FEU Sodium (136-145) mmol/L Potassium (3.5-5.1) mmol/L Chloride (98-107) mmol/L Carbon Dioxide (21-32) mmol/L Anion Gap (3-11) BUN (7-18) mg/dl Creatinine (0.6-1.2) mg/dl Est Cr Clr Drug Dosing ml/min Est GFR ( Amer) Est GFR (Non-Af Amer) BUN/Creatinine Ratio (10-20) Glucose (70-99) mg/dl Calcium (8.5-10.1) mg/dl Phosphorus 4.3 (2.5-4.9) mg/dl Magnesium (1.8-2.4) mg/dl Ferritin 233.6 (8-388) ng/ml Total Bilirubin (0.2-1) mg/dl AST (15-37) U/L ALT (12-78) U/L Alkaline Phosphatase (45-117) U/L Lactate Dehydrogenase 242 (84-246) U/L Troponin I (0-0.045) ng/ml C-Reactive Protein 2.99 H (0-0.29) mg/dl NT-Pro-B Natriuret Pep 18 (0-450) pg/ml Total Protein (6.4-8.2) gm/dl Albumin (3.4-5.0) gm/dl Globulin (2.5-4.0) gm/dl Albumin/Globulin Ratio (0.9-2) Procalcitonin 0.08 (0-0.5) ng/ml Administered Medications Buspirone HCl (Buspirone 7.5 Mg Tab) 7.5 mg PO BID MINA Stop: 03/11/20 22:38 Last Admin: 02/10/20 23:42 Dose: 7.5 mg Documented by: [id number] Enoxaparin Sodium (Enoxaparin Inj 40 Mg/0.4 Ml Syr) 40 mg SQ Q12 MINA Stop: 03/11/20 22:38 Last Admin: 02/10/20 23:42 Dose: 40 mg Documented by: [id number] Remdesivir 200 mg/ Sodium (Chloride) 250 mls @ 125 mls/hr IV ONE ONE; Protocol Stop: 02/11/20 00:59 Last Admin: 02/10/20 23:41 Dose: 125 mls/hr Documented by: [id number] Latanoprost (Latanoprost 0.005% Op Soln 2.5 Ml Btl) 1 drops OPB QPM MINA Stop: 03/11/20 22:38 Last Admin: 02/10/20 23:42 Dose: 1 drops Documented by: [id number] Discontinued Medications Dexamethasone (Dexamethasone Sod Inj 10 Mg/Ml Vial) 6 mg IV NOW STA Stop: 02/10/20 17:51 Last Admin: 02/10/20 18:52 Dose: 6 mg Documented by: [id number] Ceftriaxone Sodium (Rocephin) 2,000 mg in 70 mls @ 140 mls/hr IV NOW STA Stop: 02/10/20 17:21 Last Infusion: 02/10/20 19:50 Dose: 0 mls/hr Documented by: [id number] Admin: 02/10/20 18:52 Dose: 140 mls/hr Documented by: [id number] Vancomycin HCl 1,750 mg/ (Sodium Chloride) 535 mls @ 200 mls/hr IV NOW ONE Stop: 02/10/20 19:39 Last Infusion: 02/10/20 22:31 Dose: 0 mls/hr Documented by: [id number] Admin: 02/10/20 19:30 Dose: 200 mls/hr Documented by: [id number] Ioversol (Optiray 320 125ml) 120 ml IV ONCE ONE Stop: 02/10/20 18:00 Last Admin: 02/10/20 17:59 Dose: 120 ml Documented by: [id number] Miscellaneous Information (Vancomycin Consult Active) 1 ea N/A UD PRN PRN Reason: Consult Stop: 03/11/20 16:58 Last Admin: 02/10/20 19:30 Dose: 1 ea Documented by: [id number] Discharge Plan Visit Data Chief Complaint: Shortness of Breath/Dyspnea Stated Complaint: OXYGEN LEVEL LOW ED Provider: Varinder Lewis Discharge Problem: Pneumonia, Chest pain, pleuritic, COVID-19 Patient Disposition: Admitted As Inpatient Discharge Instructions Interventions: ED Discharge Assessment Last Done: 02/10/20 20:25
[2020-02-10] MEDS ORDERED: VANCOMYCIN CONSULT ACTIVE PRN (16:59)
[2020-02-10] MEDS ORDERED: VANCOMYCIN HCL 1,750 MG in SODIUM CHLORIDE 0.9% 500 ML IV ONE (16:59)
[2020-02-10 17:08] LABS: Partial Thromboplastin Ratio 1.1; Partial Thromboplastin Time 31.3 Seconds (21.0-31.0); Prothrombin Time 10.9 Seconds (9.0-12.0)
[2020-02-10 17:09] LABS: D Dimer 520 ug/L FEU (0-500)
[2020-02-10 17:18] LABS: Alanine Aminotransferase 39 U/L (12-78); Albumin Level 3.6 gm/dl (3.4-5.0); Aspartate Aminotransferase 23 U/L (15-37); BUN Creatinine Ratio 19.3 (10-20); Blood Urea Nitrogen 14 mg/dl (7-18); Calcium 8.7 mg/dl (8.5-10.1); Carbon Dioxide 28 mmol/L (21-32); Chloride 106 mmol/L (98-107); Creatinine Clr Calc Pharmacy 113.7 ml/min; Est GFR (African American) 116.4; Est GFR (Non-African American) 100.4; Glucose 104 mg/dl (70-99); Potassium 3.6 mmol/L (3.5-5.1); Sodium 138 mmol/L (136-145)
[2020-02-10 17:23] LABS: Albumin Globulin Ratio 0.9 (0.9-2); Alkaline Phosphatase 74 U/L (45-117); Bilirubin,Total 0.4 mg/dl (0.2-1); Globulin 4.1 gm/dl (2.5-4.0); Total Protein 7.7 gm/dl (6.4-8.2); Troponin I < 0.015 ng/ml (0-0.045)
[2020-02-10] MEDS ORDERED: DEXAMETHASONE SOD INJ 10 MG/ML VIAL IV STA (17:50)
[2020-02-10] MEDS ORDERED: OPTIRAY 320 125ml IV ONE (17:59)
--- NOTE | 2020-02-10 18:13 | CT Scan Report ---
CT ANGIOGRAM OF THE CHEST CLINICAL HISTORY: Shortness of breath, chest pain, hypoxia, pneumonia, Covid positive patient. Possib le pulmonary embolism. COMPARISON STUDY: Chest x-ray dated 02/10/2020, CT scan dated 04/19/2016 TECHNIQUE: Following the IV administration of 120 mL of Optiray-320, CT angiogram of the thorax was p erformed from the thoracic inlet to the lung bases utilizing the pulmonary embolus protocol. Images a re reviewed in the axial, sagittal, and coronal planes. IV contrast was administered without complica tion. MIP imaging was performed. A dose lowering technique was utilized adhering to the principles o f ALARA. CT DOSE: 499.10 mGycm FINDINGS: There is hepatic steatosis. There are mildly enlarged mediastinal and hilar lymph nodes, likely reactive. There was no evidence of thoracic aortic dilatation. There were no pulmonary artery filling defects to indicate acute pulmonary embolism. There are trace bilateral pleural effusions There are moderately extensive multifocal bilateral groundglass opacities with lower lung zone areas of consolidation. The findings are consistent with a multifocal pneumonia, likely Covid related given the clinical history IMPRESSION: 1. No evidence of acute pulmonary embolism 2. Moderately extensive multifocal bilateral pulmonary opacities, consistent with a multifocal pneumo gavin likely Covid related given the clinical history 3. Minimal adenopathy likely reactive 4. Trace pleural effusions 5. Hepatic steatosis ACT 112: Negative or not required by law. Electronically signed by: Wes Rios M.D. 02/10/2020 6:12 PM
--- NOTE | 2020-02-10 18:34 | History & Physical Report ---
Date of Service February 10, 2020 Assessment & Plan (1) COVID-19: 40yo C female presenting with pneumonia secondary to Covid-19 infection, hypoxia reported at home to 84%. O2 92% on room air in the ER - currently improved to 96% on 2L. Patient completed a course of Azithromycin as well as a Medrol dose pack outpatient and was recently started on Doxycycline as well. Suspect multifocal PNA is secondary to Covid-19 infection rather than bacterial PNA. Patient with no leukocytosis, neutrophilia or bands. Procalcitonin within normal range at 0.08 -Admit to medical floor. Maintain isolation precautions, airborne and contact -Check inflammatory markers - ESR, CRP, LDH, Ferritin -Ddimer is mildly elevated at 520 -Check BNP -Dexamethasone 6mg IV daily - patient received first dose in the ER -Remdesivir per protocol ordered -No convalescent plasma at this time - patient is reluctant to receive this therapy at this time. -Supplemental O2 as needed to maintain saturations >92% -Tylenol as needed -Albuterol HFA as needed -Will continue home Vitamin D -Will hold off on additional antibiotics at this time - patient received Ceftriaxone and is ordered to receive Vancomycin in the ER -MRSA nasal swab ordered Present on Admission?: Yes (2) Anxiety: Patient acutely anxious given current situation -Continue home medications, Citalopram and Buspirone Present on Admission?: Yes (3) Glaucoma: Chronic. -Continue Timolol F/E/N - Heplock. Electrolytes WNL - check PO4 (add on to specimen) and replete as needed, Regular diet as tolerated Ppx - Lovenox 40mg BID given propensity for clotting seen with Covid-19 infection Dispo - Admit to medical floor Present on Admission?: Yes History of Present Illness Chief Complaint: Chest pain, cough, SOB Primary Care Provider: Aspen Berry MD Enedina Araujo is a 40yo C female presenting with pneumonia secondary to Covid- 19. Patient began feeling ill on February 01 with fevers/sore throat/chills/body aches/nausea/vomiting and diarrhea. She was found to be POSITIVE for Covid-19 by nasopharyngeal swab on 02/03/20. She has been in contact with her PCP and was given Azithromycin and a Medrol dose pack on 02/05/20 which she completed. She reports feeling slightly better over the weekend. However, she was seen in the ER on 02/07 for high fevers, chest tightness and SOB. CXR at that time with bilateral PNA. She was given Ventolin and started on Doxycycline. She returns today with worsening SOB, pleuritic chest pain. She was checking her pulse ox at home and was found to be 84% on room air. Patient afebrile, HD stable on arrival. Saturating 92% on room air in the ER. Patient currently with complaint of chest pain as well as SOB. She states that her symptoms are pleuritic in nature, somewhat improved with oxygen. No additional complaints at this time. Patient with multiple family members that are sick including her . She has two children at home, ages 8 and 12 ER Course: CTA completed, Ceftriaxone, Dexamethasone, Vancomycin Allergies Allergy/AdvReac Type Severity Reaction Status Date / Time Penicillins Allergy Intermediate HIVES Verified 02/10/20 18:56 Home Medications Medication Instructions Recorded Confirmed Type multivitamin 1 tab PO DAILY 10/13/18 02/03/20 History latanoprost 0.005 % eye drops 1 drops OP QPM ml 01/04/19 02/03/20 History timolol maleate 0.5 % eye drops 1 drops OP DAILY ml 01/04/19 02/03/20 History cholecalciferol (vitamin D3) 125 5,000 units PO DAILY #30 cap 01/06/19 02/03/20 Rx mcg (5,000 unit) capsule citalopram 40 mg tablet 40 mg PO DAILY #90 tab 01/06/19 02/03/20 Rx buspirone 7.5 mg tablet 7.5 mg PO BID 01/01/20 02/03/20 History topiramate 50 mg tablet 50 mg PO DAILY tab 01/01/20 02/03/20 History methylprednisolone 4 mg tablets in See Rx Instructions .ROUTE 02/05/20 Rx a dose pack .COMPLEX #21 ea albuterol sulfate 90 mcg/actuation 2 inh INHALATION Q8H PRN #6.7 g 02/09/20 02/09/20 Rx aerosol inhaler doxycycline hyclate 100 mg tablet 100 mg PO BID 10 Days #20 tab 02/09/20 02/09/20 Rx dextromethorphan HBr [Delsym] 0 mg PO Q12 PRN 02/10/20 02/10/20 History ibuprofen 600 mg PO TID PRN 02/10/20 02/10/20 History Past Med/Surg History Medical History Abnormal TSH Elevated creatine kinase Encounter for gynecological examination without abnormal finding Glaucoma H/O appendicitis Headache Intermittent fever of unknown origin Menopausal symptoms Otitis externa Otitis media Postcholecystectomy diarrhea Thyroid nodule Surgical History H/O oral surgery H/O tonsillitis H/O: hysterectomy H/O: hysterectomy S/P appendectomy S/P cholecystectomy S/P hysterectomy S/P tonsillectomy S/P tonsillectomy and adenoidectomy S/P tubal ligation S/P tube myringotomy Family History Brother Hypertension Grandfather (Paternal) Diabetes Mother Thyroid disorder Graves disease Grandmother (Maternal) Hypertension Breast cancer Denies family history of Ovarian cancer Prostate cancer Myocardial infarction Colorectal cancer Social History Smoking Status: Never smoker Hx Alcohol Use: Yes Alcohol type: beer Hx Substance Use: No Preferred Language: Kinyarwanda Communication Ability: Effective Csw Required: No Beliefs That Will Affect Care: None Current Living Situation: Spouse and Family Feels Safe at Home: Yes Assistive Devices: Glasses Review of Systems Review of Systems: All systems reviewed & are unremarkable except as noted in HPI & below Physical Exam Physical Exam: General: patient resting comfortably, NAD, non-toxic in ap pearance, AA&O x 4, anxious Skin: warm, dry, intact, no rashes or lesions HEENT: NC/AT, PERRL, EOMI, anicteric sclera, conjunctiva without injection, external ear normal to inspection and nontender, nares patent, moist mucus membranes, dentition intact, no oropharyngeal lesions, neck supple, trachea midline, no LAD, no thyromegaly, no JVD Heart: +S1/S2, regular, no m/r/g Lungs: equal air entry bilaterally, no rales/rhonchi/wheezes Abd: +BS, soft, NT/ND, no masses/organomegaly/ascites Ext: warm, 2+ pulses in UE/LE bilaterally, no clubbing/cyanosis or edema Neuro: nonfocal, patient AA&O x 4, speech intact, no facial droop, moving all extremities on command with equal strength 5/5 Results & Data Results & [facility] ([facility]) Vital Signs (Past 12 Hours) Vital Signs Pulse Resp BP Pulse Ox 02/10/20 17:00 69 20 103/75 96 02/10/20 16:46 92 02/10/20 16:36 66 18 106/73 97 02/10/20 15:38 70 18 109/71 93 Laboratory Results Lab Results 02/10/20 02/10/20 02/10/20 Range/Units 16:21 16:21 16:21 WBC 5.90 (4.8-10.8) K/uL RBC 4.61 (4.2-5.4) M/uL Hgb 14.5 (12.0-16.0) g/dL Hct 43.3 (37-47) % MCV 93.9 (80-100) fL MCH 31.5 (25-34) pg MCHC 33.5 (32-36) g/dL RDW Std Deviation 45.2 (36.4-46.3) fL RDW Coeff of Dannie 13.2 (11.5-14.5) % Plt Count 276 (130-400) K/uL MPV 9.2 (7.4-10.4) fL Immature Gran % (Auto) 0.3 % Neut % (Auto) 56.2 % Lymph % (Auto) 37.3 % Finney % (Auto) 5.9 % Eos % (Auto) 0.0 % Baso % (Auto) 0.3 % Neut # (Auto) 3.31 (1.4-6.5) K/uL Lymph # (Auto) 2.20 (1.2-3.4) K/uL Finney # (Auto) 0.35 (0.11-0.59) K/uL Eos # (Auto) 0.00 (0-0.5) K/uL Baso # (Auto) 0.02 (0-0.2) K/uL Immature Gran # (Auto) 0.02 (0.00-0.02) K/uL PT 10.9 (9.0-12.0) Seconds INR 1.0 (0.9-1.1) APTT 31.3 H (21.0-31.0) Seconds PTT Ratio 1.1 D-Dimer 520 H* (0-500) ug/L FEU Sodium 138 (136-145) mmol/L Potassium 3.6 (3.5-5.1) mmol/L Chloride 106 (98-107) mmol/L Carbon Dioxide 28 (21-32) mmol/L Anion Gap 4.0 (3-11) BUN 14 (7-18) mg/dl Creatinine 0.75 (0.6-1.2) mg/dl Est Cr Clr Drug Dosing 113.7 ml/min Est GFR ( Amer) 116.4 Est GFR (Non-Af Amer) 100.4 BUN/Creatinine Ratio 19.3 (10-20) Glucose 104 H (70-99) mg/dl Calcium 8.7 (8.5-10.1) mg/dl Magnesium 2.0 (1.8-2.4) mg/dl Total Bilirubin 0.4 (0.2-1) mg/dl AST 23 (15-37) U/L ALT 39 (12-78) U/L Alkaline Phosphatase 74 (45-117) U/L Troponin I < 0.015 (0-0.045) ng/ml Total Protein 7.7 (6.4-8.2) gm/dl Albumin 3.6 (3.4-5.0) gm/dl Globulin 4.1 H (2.5-4.0) gm/dl Albumin/Globulin Ratio 0.9 (0.9-2) Diagnostic Findings CT ANGIOGRAM OF THE CHEST CLINICAL HISTORY: Shortness of breath, chest pain, hypoxia, pneumonia, Covid positive patient. Possible pulmonary embolism. COMPARISON STUDY: Chest x-ray dated 02/10/2020, CT scan dated 04/19/2016 TECHNIQUE: Following the IV administration of 120 mL of Optiray-320, CT angiogram of the thorax was performed from the thoracic inlet to the lung bases utilizing the pulmonary embolus protocol. Images are reviewed in the axial, sagittal, and coronal planes. IV contrast was administered without complication. MIP imaging was performed. A dose lowering technique was utilized adhering to the principles of ALARA. CT DOSE: 499.10 mGycm FINDINGS: There is hepatic steatosis. There are mildly enlarged mediastinal and hilar lymph nodes, likely reactive. There was no evidence of thoracic aortic dilatation. There were no pulmonary artery filling defects to indicate acute pulmonary embol ism. There are trace bilateral pleural effusions There are moderately extensive multifocal bilateral groundglass opacities with lower lung zone areas of consolidation. The findings are consistent with a multifocal pneumonia, likely Covid related given the clinical history IMPRESSION: 1. No evidence of acute pulmonary embolism 2. Moderately extensive multifocal bilateral pulmonary opacities, consistent with a multifocal pneumonia likely Covid related given the clinical history 3. Minimal adenopathy likely reactive 4. Trace pleural effusions 5. Hepatic steatosis XR chest 1V portable CLINICAL HISTORY: Dyspnea COMPARISON STUDY: 02/08/2020 FINDINGS: The cardiac and mediastinal contours remain stable. There are progressive bilateral pulmonary airspace opacities, suggestive of a multifocal pneumonia. Clinical and radiographic follow-up is recommended. There is blunting of the right lateral costophrenic angle a small effusion cannot be excluded.[ IMPRESSION: Progressive bilateral pulmonary airspace opacities suspicious for a worsening multifocal pneumonia. ACT 112: Negative or not required by law. Electronically signed by: Wes Rios M.D. 02/10/2020 4:51 PM ECG Additional Comments: EKG wtih NSR at 62, normal axis, PW=063, QRS=96, PMo=857, no acute ischemic changes, unchanged from prior study in 2017 Code Status & VTE Plan VTE Prophylaxis Plan VTE Prophylaxis will be ordered: Yes PG Care Time/CCT Total # of Minutes Spent Total Time Spent with Patient: Total time spent is greater than 50% in coordination of care (as documented) at patient's floor/unit and/or counseling patient: Coding Level of Care Code 91317 Initial Inpt Care Lvl 2 Diagnoses COVID-19 U07.1 Anxiety F41.9 Glaucoma H40.9 Glaucoma type: unspecified Laterality: unspecified laterality (1) Glaucoma Glaucoma type: unspecified Laterality: unspecified laterality Qualified Code(s): H40.9 - Unspecified glaucoma
[2020-02-10] MEDS ORDERED: guaiFENesin/DEXTROM SYRUP 100MG/10MG 5ML UDC PO PRN (22:39)
[2020-02-10] MEDS ORDERED: ACETAMINOPHEN 325 MG TAB PO PRN (22:39)
[2020-02-10] MEDS ORDERED: ONDANSETRON INJ 2 MG/ML 2 ML VIAL IV PRN (22:39)
[2020-02-10] MEDS ORDERED: ALBUTEROL HFA 8 GM INHALER INH PRN (22:39)
[2020-02-10] MEDS ORDERED: REMDESIVIR 200 MG in SODIUM CHLORIDE 0.9% 210 ML IV ONE (23:00)
[2020-02-10 23:16] LABS: C Reactive Protein 2.99 mg/dl (0-0.29); Ferritin 233.6 ng/ml (8-388); Phosphorus 4.3 mg/dl (2.5-4.9)
[2020-02-10 23:40] LABS: Appearance Urine Clear (Clear); Bilirubin Urine Negative (Negative); Blood Urine Negative (Negative); Color Urine Yellow; Glucose Urine UA Negative (Negative); Ketones Urine Negative (Negative); Leukocyte Esterase Urine Negative (Negative); Nitrite Urine Negative (Negative); Protein Urine Negative (Negative); Urobilinogen Urine Negative (Negative); pH Urine 5.5 (4.5-7.5)
[2020-02-10] MEDS: LATANOPROST 0.005% OP SOLN 2.5 ML BTL OPB SCH (23:42)
[2020-02-10] MEDS: ENOXAPARIN INJ 40 MG/0.4 ML SYR SQ SCH (23:42)
[2020-02-10] MEDS: busPIRone 7.5 MG TAB PO SCH (23:42)
[2020-02-11] MEDS: SODIUM CHLORIDE 0.9% 10ML FLUSH IV SCH ×2 (02:31→19:40)
[2020-02-11 07:31] LABS: Basophils # (auto) 0.01 K/uL (0-0.2); Basophils % (auto) 0.2 %; Hematocrit (blood only) 42.7 % (37-47); Hemoglobin 14.4 g/dL (12.0-16.0); Immature Granulocytes # (auto) 0.01 K/uL (0.00-0.02); Immature Granulocytes % (auto) 0.2 %; Lymphocytes # (auto) 1.66 K/uL (1.2-3.4); Lymphocytes % (auto) 34.2 %; Mean Corpuscular Hemoglobin 32.1 pg (25-34); Mean Corpuscular Hgb Conc 33.7 g/dL (32-36); Mean Corpuscular Volume 95.1 fL (80-100); Mean Platelet Volume 9.5 fL (7.4-10.4); Monocytes # (auto) 0.24 K/uL (0.11-0.59); Monocytes % (auto) 4.9 %; Neutrophils # (auto) 2.93 K/uL (1.4-6.5); Neutrophils % (auto) 60.5 %; Platelet Count 274 K/uL (130-400); RDW Coefficient of Variation 13.1 % (11.5-14.5); RDW Standard Deviation 45.2 fL (36.4-46.3); Red Blood Count 4.49 M/uL (4.2-5.4); White Blood Count 4.85 K/uL (4.8-10.8)
[2020-02-11] MEDS: busPIRone 7.5 MG TAB PO SCH ×2 (08:41→21:23)
[2020-02-11] MEDS: ENOXAPARIN INJ 40 MG/0.4 ML SYR SQ SCH ×2 (08:42→21:23)
[2020-02-11] MEDS: TOPIRAMATE 50 MG TAB PO SCH (08:42)
[2020-02-11] MEDS: TIMOLOL MALEATE 0.5% OP SOLN 5 ML BTL OPB SCH (08:42)
[2020-02-11] MEDS: CHOLECALCIFEROL 1,000 UNITS 25 MCG TAB PO SCH (08:42)
[2020-02-11] MEDS: CITALOPRAM 40 MG TAB PO SCH (08:42)
[2020-02-11] MEDS ORDERED: DEXAMETHASONE SOD INJ 10 MG/ML VIAL IV SCH (09:00)
[2020-02-11 09:05] LABS: Alanine Aminotransferase 36 U/L (12-78); Albumin Level 3.2 gm/dl (3.4-5.0); Aspartate Aminotransferase 24 U/L (15-37); BUN Creatinine Ratio 17.2 (10-20); Blood Urea Nitrogen 12 mg/dl (7-18); Calcium 8.4 mg/dl (8.5-10.1); Carbon Dioxide 26 mmol/L (21-32); Chloride 108 mmol/L (98-107); Est GFR (African American) 127.1; Est GFR (Non-African American) 109.7; Glucose 126 mg/dl (70-99); Potassium 3.9 mmol/L (3.5-5.1); Sodium 139 mmol/L (136-145)
[2020-02-11 09:08] LABS: Alkaline Phosphatase 73 U/L (45-117); Bilirubin Direct < 0.1 mg/dl (0-0.2); Bilirubin,Total 0.4 mg/dl (0.2-1); Total Protein 7.3 gm/dl (6.4-8.2)
[2020-02-11] MEDS: REMDESIVIR 100 MG in SODIUM CHLORIDE 0.9% 230 ML IV SCH (17:57)
[2020-02-11] MEDS: DEXAMETHASONE SOD PHOSPHATE 6 MG in SYRINGE 0 ML IV SCH (17:57)
[2020-02-11] MEDS: LATANOPROST 0.005% OP SOLN 2.5 ML BTL OPB SCH (21:24)
--- NOTE | 2020-02-11 23:21 | Hospitalist Progress Note ---
Date of Service February 11, 2020 Assessment & Plan (1) COVID-19: 40yo C female presenting with pneumonia secondary to Covid-19 infection, hypoxia reported at home to 84%. O2 92% on room air in the ER - currently improved to 96% on 2L. Patient completed a course of Azithromycin as well as a Medrol dose pack outpatient and was recently started on Doxycycline as well. Suspect multifocal PNA is secondary to Covid-19 infection rather than bacterial PNA. Patient with no leukocytosis, neutrophilia or bands. Procalcitonin within normal range at 0.08 -Admit to medical floor. Maintain isolation precautions, airborne and contact -Check inflammatory markers - ESR, CRP, LDH, Ferritin -Ddimer is mildly elevated at 520 -Check BNP -Dexamethasone 6mg IV daily - patient received first dose in the ER -Remdesivir per protocol ordered -No convalescent plasma at this time - patient is reluctant to receive this therapy at this time. -Supplemental O2 as needed to maintain saturations >92% -Tylenol as needed -Albuterol HFA as needed -Will continue home Vitamin D -Will hold off on additional antibiotics at this time - patient received Ceftriaxone and is ordered to receive Vancomycin in the ER -recommended her to be prone as tolerated while she is here. -continues to require supplemental oxygen. (2) Anxiety: Patient acutely anxious given current situation -Continue home medications, Citalopram and Buspirone (3) Glaucoma: Chronic. -Continue Timolol F/E/N - Heplock. Electrolytes WNL - check PO4 (add on to specimen) and replete as needed, Regular diet as tolerated Ppx - Lovenox 40mg BID given propensity for clotting seen with Covid-19 infection Admission and Anticipated Discharge Date Admission Date: February 10, 2020 Subjective Patient reports mild improvement from yesterday. She does report feeling wiped out today. Review of Systems Review of Systems: All systems reviewed & are unremarkable except as noted in HPI & below Physical Exam Physical Exam: General: patient resting comfortably, NAD, non-toxic in appearance, AA&O x 4 Skin: warm, dry, intact, no rashes or lesions HEENT: NC/AT, PERRL, EOMI, anicteric sclera, conjunctiva without injection, external ear normal to inspection and nontender, nares patent, moist mucus membranes, dentition intact, no oropharyngeal lesions, neck supple, trachea midline, no LAD, no thyromegaly, no JVD Heart: +S1/S2, regular, no m/r/g Lungs: equal air entry bilaterally, no rales/rhonchi/wheezes Abd: +BS, soft, NT/ND, no masses/organomegaly/ascites Ext: warm, 2+ pulses in UE/LE bilaterally, no clubbing/cyanosis or edema Neuro: nonfocal, patient AA&O x 4, speech intact, no facial droop, moving all extremities on command with equal strength 5/5 Results & Data Results & Data ([facility]) Vital Signs (Past 12 Hours) Vital Signs Temp Pulse Resp BP BP Pulse Ox 02/11/20 23:07 37 C 68 18 102/53 L 90 02/11/20 16:12 36.7 C 72 18 96/48 L 96 02/11/20 12:29 37.1 C 70 16 112/68 94 PG Care Time/CCT Total # of Minutes Spent Total Time Spent with Patient: Total time spent is greater than 50% in coordination of care (as documented) at patient's floor/unit and/or counseling patient: Coding Level of Care Code 89077 Subseq Hosp Care Lvl 3 Diagnoses COVID-19 U07.1 Anxiety F41.9 Glaucoma H40.9 Glaucoma type: unspecified Laterality: unspecified laterality (1) Glaucoma Glaucoma type: unspecified Laterality: unspecified laterality Qualified Code(s): H40.9 - Unspecified glaucoma
[2020-02-12 08:50] LABS: Hematocrit (blood only) 43.3 % (37-47); Hemoglobin 14.3 g/dL (12.0-16.0); Mean Corpuscular Hemoglobin 31.2 pg (25-34); Mean Corpuscular Volume 94.3 fL (80-100); Mean Platelet Volume 9.2 fL (7.4-10.4); Platelet Count 285 K/uL (130-400); Red Blood Count 4.59 M/uL (4.2-5.4); White Blood Count 5.56 K/uL (4.8-10.8)
[2020-02-12] MEDS: CHOLECALCIFEROL 1,000 UNITS 25 MCG TAB PO SCH (09:03)
[2020-02-12] MEDS: busPIRone 7.5 MG TAB PO SCH ×2 (09:03→20:43)
[2020-02-12] MEDS: CITALOPRAM 40 MG TAB PO SCH (09:03)
[2020-02-12] MEDS: TOPIRAMATE 50 MG TAB PO SCH (09:04)
[2020-02-12] MEDS: ENOXAPARIN INJ 40 MG/0.4 ML SYR SQ SCH ×2 (09:04→20:44)
[2020-02-12] MEDS: TIMOLOL MALEATE 0.5% OP SOLN 5 ML BTL OPB SCH (09:04)
[2020-02-12 09:12] LABS: BUN Creatinine Ratio 23.8 (10-20); Calcium 8.7 mg/dl (8.5-10.1); Creatinine Clr Calc Pharmacy 117.2 ml/min; Est GFR (African American) 124.4; Est GFR (Non-African American) 107.3; Potassium 3.8 mmol/L (3.5-5.1)
--- NOTE | 2020-02-12 11:42 | Hospitalist Progress Note ---
Date of Service February 12, 2020 Assessment & Plan (1) COVID-19: Positive for Covid on 02/03/2020. Was at home sick for several days and getting weaker. - Dexamethasone 6mg IV daily (Last dose: 02/19/2020) - Remdesivir per protocol ordered - No convalescent plasma at this time - patient is reluctant to receive this therapy and she is now 9 days from diagnosis, so benefit would be questionable. - Supplemental O2 as needed to maintain saturations >92%. - Hopefully discharge tomorrow if she is feeling better. Encouraged her to ambulate in room and do bed exercises to international student counselor her level of comfort and safety at home. (2) Anxiety: Patient acutely anxious given current situation. - Continue home medications: citalopram, buspirone, and topiramate (3) Glaucoma: Chronic. - Continue timolol & latanoprost (4) DVT prophylaxis: Lovenox 40 mg SQ Q12h Admission and Anticipated Discharge Date Admission Date: February 10, 2020 Subjective Feeling more energy today. Was able to get from the bathroom and back without any issue. Feeling better while speaking. Reports no fevers/chills, chest pain, abdominal pain, nausea, or vomiting. Physical Exam Constitutional: WD/WN, vitals as above Eyes: EOM intact bilaterally; no conjunctival abnormality ENMT: external ear and nose normal, oropharynx normal Neck: trachea midline, no thyromegaly normal visual inspection Respiratory: normal respiratory effort, lungs clear to auscultation no re spiratory distress Cardiovascular: RRR, no murmur, no edema Gastrointestinal (Abdomen): Inspection/Auscultation: abdomen normal to inspection; abdomen not distended Musculoskeletal: no cyanosis or clubbing, extremities motor strength 5/5 Skin: no rashes, warm and dry Neurologic: moves all extremities and awake Psychiatric: Orientation: alert, oriented to person and cooperative Results & Data Results & Data ([facility]) Vital Signs (Past 12 Hours) Vital Signs Temp Pulse Resp BP Pulse Ox 02/12/20 08:20 36.6 C 62 20 112/69 93 PG Care Time/CCT Total # of Minutes Spent Total Time Spent with Patient: Total time spent is greater than 50% in coordination of care (as documented) at patient's floor/unit and/or counseling patient: Coding Level of Care Code 86881 Subseq Hosp Care Lvl 2 Diagnoses COVID-19 U07.1 Anxiety F41.9 Glaucoma H40.9 Glaucoma type: unspecified Laterality: unspecified laterality DVT prophylaxis Z29.9 (1) Glaucoma Glaucoma type: unspecified Laterality: unspecified laterality Qualified Code(s): H40.9 - Unspecified glaucoma
[2020-02-12] MEDS: REMDESIVIR 100 MG in SODIUM CHLORIDE 0.9% 230 ML IV SCH (17:04)
[2020-02-12] MEDS: DEXAMETHASONE SOD PHOSPHATE 6 MG in SYRINGE 0 ML IV SCH (17:05)
[2020-02-12] MEDS: LATANOPROST 0.005% OP SOLN 2.5 ML BTL OPB SCH (20:45)
[2020-02-12] MEDS: SODIUM CHLORIDE 0.9% 10ML FLUSH IV SCH (20:56)
--- NOTE | 2020-02-12 21:35 | Electrocardiogram Report ---
Test Reason : Blood Pressure : / mmHG Vent. Rate : 062 BPM Atrial Rate : 062 BPM P-R Int : 178 ms QRS Dur : 096 ms QT Int : 416 ms P-R-T Axes : 016 043 013 degrees QTc Int : 422 ms Poor data quality, interpretation may be adversely affected Normal sinus rhythm Cannot rule out Anterior infarct , age undetermined Abnormal ECG When compared with ECG of 19-APR-2016 22:47, No significant change was found Confirmed by Lee Romero ([id number]) on 02/12/2020 9:35:38 PM Referred By: Aspen Eagle Confirmed By:Lee Romero
[2020-02-13] MEDS: CHOLECALCIFEROL 1,000 UNITS 25 MCG TAB PO SCH (08:00)
[2020-02-13] MEDS: busPIRone 7.5 MG TAB PO SCH ×2 (08:00→20:35)
[2020-02-13] MEDS: CITALOPRAM 40 MG TAB PO SCH (08:00)
[2020-02-13] MEDS: TOPIRAMATE 50 MG TAB PO SCH (08:00)
[2020-02-13] MEDS: TIMOLOL MALEATE 0.5% OP SOLN 5 ML BTL OPB SCH (08:01)
[2020-02-13] MEDS: ENOXAPARIN INJ 40 MG/0.4 ML SYR SQ SCH ×2 (08:01→20:35)
[2020-02-13 10:22] LABS: Base Excess VBG 0.7 mEq/L; HCO3 VBG 26 mmol/L; Oxygen Saturation VBG < 60.0 %; PCO2 VBG 46 mmHg (38-50); PO2 VBG 33 mmHg; pH VBG 7.38 (7.36-7.41)
[2020-02-13 10:39] LABS: Hematocrit (blood only) 42.2 % (37-47); Hemoglobin 14.2 g/dL (12.0-16.0); Mean Corpuscular Hemoglobin 31.8 pg (25-34); Mean Corpuscular Hgb Conc 33.6 g/dL (32-36); Mean Corpuscular Volume 94.4 fL (80-100); Mean Platelet Volume 9.6 fL (7.4-10.4); Platelet Count 329 K/uL (130-400); RDW Coefficient of Variation 12.9 % (11.5-14.5); RDW Standard Deviation 44.7 fL (36.4-46.3); Red Blood Count 4.47 M/uL (4.2-5.4); White Blood Count 7.21 K/uL (4.8-10.8)
[2020-02-13 10:48] LABS: BUN Creatinine Ratio 18.2 (10-20); Calcium 8.4 mg/dl (8.5-10.1); Creatinine Clr Calc Pharmacy 99.1 ml/min; Est GFR (African American) 101.5; Est GFR (Non-African American) 87.6; Potassium 3.4 mmol/L (3.5-5.1)
[2020-02-13 11:00] LABS: Basophils # (auto) 0.02 K/uL (0-0.2); Basophils % (auto) 0.3 %; Immature Granulocytes # (auto) 0.08 K/uL (0.00-0.02); Immature Granulocytes % (auto) 1.1 %; Lymphocytes # (auto) 3.25 K/uL (1.2-3.4); Lymphocytes % (auto) 45.1 %; Monocytes # (auto) 0.34 K/uL (0.11-0.59); Monocytes % (auto) 4.7 %; Neutrophils # (auto) 3.52 K/uL (1.4-6.5); Neutrophils % (auto) 48.8 %
--- NOTE | 2020-02-13 11:17 | XRay Report ---
XR chest 1V portable HISTORY: 40 years-old Female Worsening shortness of breath acute shortness of breath COMPARISON: CTA chest and chest radiograph studies 02/10/2020 TECHNIQUE: Portable AP view of the chest FINDINGS: Unchanged cardiomediastinal and hilar silhouettes. Moderately improved aeration of the lungs with per sistent mixed interstitial and alveolar opacities of the mid and lower lung zones. There is no pneumo thorax or overt pulmonary edema. Trace pleural effusions. Bones appear grossly intact. IMPRESSION: Moderately improved aeration of the lungs with persistent bilateral pulmonary opacities s uggestive of ongoing pneumonia. ACT 112: Negative or not required by law. The above report was generated using voice recognition software. It may contain grammatical, syntax o r spelling errors. Electronically signed by: Elder Wiggins M.D. 02/13/2020 11:16 AM
--- NOTE | 2020-02-13 16:07 | Hospitalist Progress Note ---
Date of Service February 13, 2020 Assessment & Plan (1) COVID-19: Positive for Covid on 02/03/2020. Was at home sick for several days and getting weaker. - Dexamethasone 6mg IV daily (Last dose: 02/19/2020) - Remdesivir per protocol ordered - No convalescent plasma at this time - patient is reluctant to receive this therapy and she is now 9 days from diagnosis, so benefit would be questionable. - Supplemental O2 as needed to maintain saturations >92%. -> Now on room air. - More subjectively short of breath today. More trouble with walking to the bathroom and back. (2) Anxiety: Patient acutely anxious given current situation. - Continue home medications: citalopram, buspirone, and topiramate (3) Glaucoma: Chronic. - Continue timolol & latanoprost (4) DVT prophylaxis: Lovenox 40 mg SQ Q12h Admission and Anticipated Discharge Date Admission Date: February 10, 2020 Subjective More shortness of breath today. Feels she is worried about going home. Reports no fevers/chills, chest pain, abdominal pain, nausea, or vomiting. Physical Exam Constitutional: WD/WN, vitals as above Eyes: EOM intact bilaterally; no conjunctival abnormality ENMT: external ear and nose normal, oropharynx normal Neck: trachea midline, no thyromegaly normal visual inspection Respiratory: no respiratory distress Auscultation: + crackles (Left lung base) Cardiovascular: RRR, no murmur, no edema Gastrointestinal (Abdomen): Inspection/Auscultation: abdomen normal to inspection; abdomen not distended Musculoskeletal: no cyanosis or clubbing, extremities motor strength 5/5 Skin: no rashes, warm and dry Neurologic: moves all extremities and awake Psychiatric: Orientation: alert, oriented to person and cooperative Results & Data Results & Data ([facility]) Vital Signs (Past 12 Hours) Vital Signs Temp Pulse Resp BP Pulse Ox 02/13/20 15:48 92 02/13/20 15:32 36.6 C 64 22 111/65 92 02/13/20 11:24 36.8 C 63 22 112/58 L 92 02/13/20 07:56 36.8 C 58 L 20 118/74 93 PG Care Time/CCT Total # of Minutes Spent Total Time Spent with Patient: Total time spent is greater than 50% in coordination of care (as documented) at patient's floor/unit and/or counseling p atient: Coding Level of Care Code 77577 Subseq Hosp Care Lvl 2 Diagnoses COVID-19 U07.1 Anxiety F41.9 Glaucoma H40.9 Glaucoma type: unspecified Laterality: unspecified laterality DVT prophylaxis Z29.9 (1) Glaucoma Glaucoma type: unspecified Laterality: unspecified laterality Qualified Code(s): H40.9 - Unspecified glaucoma
[2020-02-13] MEDS: REMDESIVIR 100 MG in SODIUM CHLORIDE 0.9% 230 ML IV SCH (17:29)
[2020-02-13] MEDS: DEXAMETHASONE SOD PHOSPHATE 6 MG in SYRINGE 0 ML IV SCH (17:29)
[2020-02-13] MEDS: SODIUM CHLORIDE 0.9% 10ML FLUSH IV SCH (20:36)
[2020-02-13] MEDS: LATANOPROST 0.005% OP SOLN 2.5 ML BTL OPB SCH (20:36)
[2020-02-14] MEDS: ENOXAPARIN INJ 40 MG/0.4 ML SYR SQ SCH (08:06)
[2020-02-14] MEDS: TOPIRAMATE 50 MG TAB PO SCH (08:07)
[2020-02-14] MEDS: TIMOLOL MALEATE 0.5% OP SOLN 5 ML BTL OPB SCH (08:07)
[2020-02-14] MEDS: CHOLECALCIFEROL 1,000 UNITS 25 MCG TAB PO SCH (08:07)
[2020-02-14] MEDS: busPIRone 7.5 MG TAB PO SCH (08:07)
[2020-02-14] MEDS: CITALOPRAM 40 MG TAB PO SCH (08:07)
--- NOTE | 2020-02-14 16:10 | Discharge Summary ---
Date of Service February 14, 2020 Admission HPI Per Admitting Provider Enedina Araujo is a 40yo C female presenting with pneumonia secondary to Covid- 19. Patient began feeling ill on February 01 with fevers/sore throat/chills/body aches/nausea/vomiting and diarrhea. She was found to be POSITIVE for Covid-19 by nasopharyngeal swab on 02/03/20. She has been in contact with her PCP and was given Azithromycin and a Medrol dose pack on 02/05/20 which she completed. She reports feeling slightly better over the weekend. However, she was seen in the ER on 02/07 for high fevers, chest tightness and SOB. CXR at that time with bilateral PNA. She was given Ventolin and started on Doxycycline. She returns today with worsening SOB, pleuritic chest pain. She was checking her pulse ox at home and was found to be 84% on room air. Patient afebrile, HD stable on arrival. Saturating 92% on room air in the ER. Patient currently with complaint of chest pain as well as SOB. She states that her symptoms are pleuritic in nature, somewhat improved with oxygen. No additional complaints at this time. Patient with multiple family members that are sick including her . She has two children at home, ages 8 and 12 ER Course: CTA completed, Ceftriaxone, Dexamethasone, Vancomycin Principal Diagnosis Covid-19 Discharge Exam Constitutional WD/WN, vitals as above Eyes EOM intact bilaterally; no conjunctival abnormality ENMT external ear and nose normal, oropharynx normal Neck trachea midline, no thyromegaly normal visual inspection Respiratory normal respiratory effort, lungs clear to auscultation no respiratory distress Auscultation: + crackles (Left lung base) Cardiovascular RRR, no murmur, no edema Gastrointestinal (Abdomen) Inspection/Auscultation: abdomen normal to inspection; abdomen not distended Musculoskeletal no cyanosis or clubbing, extremities motor strength 5/5 Skin no rashes, warm and dry Neurologic moves all extremities and awake Psychiatric Orientation: alert, oriented to person and cooperative Discharge Data Allergies Allergy/AdvReac Type Severity Reaction Status Date / Time Penicillins Allergy Intermediate HIVES Verified 02/10/20 18:56 Consultations 02/10/20 17:59 ED Decision to Admit Stat Ordered Studies 02/10/20 16:50 CT angio chest PE protocol Stat Hospital Course (1) COVID-19: Positive for Covid on 02/03/2020. Was at home sick for several days and getting weaker. - Dexamethasone 6mg IV daily (Last dose: 02/19/2020) - Remdesivir per protocol ordered - No convalescent plasma at this time - patient is reluctant to receive this therapy and she is now 9 days from diagnosis, so benefit would be questionable. - Supplemental O2 as needed to maintain saturations >92%. -> - On room air by discharge and tolerating moving around the room without much trouble. Discharged home on remaining dexamethasone course (5 more days). (2) Anxiety: Patient acutely anxious given current situation. - Continue home medications: citalopram, buspirone, and topiramate (3) Glaucoma: Chronic. - Continue timolol & latanoprost (4) DVT prophylaxis: Lovenox 40 mg SQ Q12h Total Time Total Time Spent Total Time Spent (In Minutes): 35 Discharge Plan Discharge Items Patient Disposition: Home - Self-Care Reason For Visit: COVID 19, HYPOXIA Discharge Diagnosis: Covid-19 Activity: Resume your previous activity Non-emergency contact: Primary Care Provider Call non-emergency contact if: your symptoms worsen and your temperature is above 101 Follow-up/Referrals: Aspen Berry MD [Primary Care Provider] - Diet: Regular Addtl Attending Provider Instructions: You were admitted to the hospital with low blood oxygen levels due to Covid-19. We treated you with steroids and remdesivir, and you have started to feel better. Your oxygen levels have improved as well. Please take the steroids for 5 more days starting tomorrow morning. You can use your home inhaler up to 4 times per day, but I would like to see you using it less over the course of the next week. Pending Studies at Discharge: No Stand-Alone Forms: My [facility] Idea Device, Smoking Cessation Medications and DC Order Prescriptions: New dexamethasone 6 mg tablet 6 mg PO DAILY Qty: 5 RF: 0 Continued multivitamin [One-A-Day Essential] tablet 1 tab PO DAILY RF: 0 timolol maleate 0.5 % drops 1 drops OPB DAILY RF: 0 latanoprost 0.005 % drops 1 drops OPB QPM RF: 0 buspirone 7.5 mg tablet 7.5 mg PO BID RF: 0 topiramate 50 mg tablet 50 mg PO DAILY RF: 0 albuterol sulfate [Ventolin HFA] 90 mcg/actuation HFA aerosol inhaler 2 inh inhalation Q8H PRN (Reason: shortness of breath or wheezing) Qty: 6.7 RF: 3 cholecalciferol (vitamin D3) 5,000 unit capsule 5,000 units PO DAILY Qty: 30 RF: 0 citalopram 40 mg tablet 40 mg PO DAILY Qty: 90 RF: 3 ibuprofen 200 mg Tablet 600 mg PO TID PRN (Reason: Pain) RF: 0 Discontinued methylprednisolone [Medrol (Darryl)] 4 mg tablets,dose pack See Rx Instructions .Route .COMPLEX Qty: 21 RF: 0 doxycycline hyclate 100 mg tablet 100 mg PO BID 10 Days Qty: 20 RF: 0 Delsym 30 mg/5 mL Liquid 0 mg PO Q12 PRN (Reason: Cough) RF: 0 Discharge Orders: Discharge Order (Routine); Ordered 02/14/20 Ordered By: Lius Peters Admission Data Admit Date/Time: 02/10/20 18:31 Attending Provider: Luis Peters Admit Provider: Heidy Albert Primary Care Provider: Aspen Berry V. Other Providers: Luis Peters Other Interventions: Discharge Summary Assessment (RN) Last Done: 02/14/20 13:09 Coding Level of Care Code D/C Day Management >30 mins Diagnoses COVID-19 U07.1 Anxiety F41.9 Glaucoma H40.9 Glaucoma type: unspecified Laterality: unspecified laterality DVT prophylaxis Z29.9
== END 2020-02-14 15:16 | disposition home or self-care (01) | DRG 177 ==
LOC: ED 15:33 → SUATTDRO 18:31 → 2S 18:31

== ENCOUNTER 2020-04-08 17:30 | Inpatient (IN) ==
[2020-04-08] MEDS ORDERED: ONDANSETRON INJ 2 MG/ML 2 ML VIAL IV STA ×2 (17:46→18:18)
[2020-04-08] MEDS ORDERED: SODIUM CHLORIDE 0.9% 1000ML 1,000 ML IV ONE (17:46)
[2020-04-08] MEDS ORDERED: MoRPHine SULFATE 4 MG/ML 1 ML CARP\\VIAL IV STA (17:46)
[2020-04-08 17:54] LABS: Basophils # (auto) 0.02 K/uL (0-0.2); Basophils % (auto) 0.2 %; Eosinophils # (auto) 0.74 K/uL (0-0.5); Eosinophils % (auto) 5.7 %; Hematocrit (blood only) 45.8 % (37-47); Hemoglobin 15.8 g/dL (12.0-16.0); Immature Granulocytes # (auto) 0.03 K/uL (0.00-0.02); Immature Granulocytes % (auto) 0.2 %; Lymphocytes % (auto) 30.9 %; Mean Corpuscular Hemoglobin 31.4 pg (25-34); Mean Corpuscular Hgb Conc 34.5 g/dL (32-36); Mean Corpuscular Volume 91.1 fL (80-100); Mean Platelet Volume 9.2 fL (7.4-10.4); Monocytes % (auto) 4.6 %; Neutrophils # (auto) 7.56 K/uL (1.4-6.5); Neutrophils % (auto) 58.4 %; Platelet Count 327 K/uL (130-400); RDW Coefficient of Variation 13.2 % (11.5-14.5); RDW Standard Deviation 43.2 fL (36.4-46.3); Red Blood Count 5.03 M/uL (4.2-5.4); White Blood Count 12.95 K/uL (4.8-10.8)
[2020-04-08 18:11] LABS: Alanine Aminotransferase 40 U/L (12-78); Albumin Level 3.8 gm/dl (3.4-5.0); Aspartate Aminotransferase 21 U/L (15-37); BUN Creatinine Ratio 9.4 (10-20); Blood Urea Nitrogen 8 mg/dl (7-18); Calcium 9.8 mg/dl (8.5-10.1); Carbon Dioxide 22 mmol/L (21-32); Chloride 113 mmol/L (98-107); Est GFR (African American) 97.3; Est GFR (Non-African American) 83.9; Glucose 125 mg/dl (70-99); Lipase 140 U/L (73-393); Potassium 3.7 mmol/L (3.5-5.1); Sodium 142 mmol/L (136-145)
[2020-04-08 18:14] LABS: Albumin Globulin Ratio 1.2 (0.9-2); Alkaline Phosphatase 63 U/L (45-117); Bilirubin,Total 0.3 mg/dl (0.2-1); Globulin 3.2 gm/dl (2.5-4.0)
[2020-04-08] MEDS ORDERED: HYDROmorphone INJ 0.5 MG/0.5 ML SYR IV STA ×2 (18:18→20:37)
--- NOTE | 2020-04-08 19:10 | Emergency Department Note ---
History of Present Illness General Chief complaint: Flank Pain Stated complaint: KIDNEY PAIN, VOMITING Time Seen by Provider: 04/08/20 17:42 History of Present Illness Maximum Pain Intensity: 7 40-year-old female who presents to the emergency department with complaint of severe right flank/back pain with nausea, vomiting and diarrhea since earlier today. The patient reports that the pain came on relatively suddenly this morning. The pain comes and goes in slow waves. Patient denies any significant alleviating or aggravating factors for the pain. The patient did notice some increased urinary frequency and dysuria 2 days ago. She does report a prior history of UTIs. She denies history of kidney stones. The patient rates her discomfort a 10 out of 10 on my initial exam. Patient denies or prior history of ovarian cyst/torsion or other intrapelvic disease. Home Medications Medication Instructions Recorded Confirmed Type multivitamin 1 tab PO DAILY 10/13/18 04/08/20 History latanoprost 0.005 % eye drops 1 drops OPB QPM ml 01/04/19 04/08/20 History timolol maleate 0.5 % eye drops 1 drops OPB DAILY ml 01/04/19 04/08/20 History cholecalciferol (vitamin D3) 125 5,000 units PO DAILY #30 cap 01/06/19 04/08/20 Rx mcg (5,000 unit) capsule citalopram 40 mg tablet 40 mg PO DAILY #90 tab 01/06/19 04/08/20 Rx buspirone 7.5 mg tablet 7.5 mg PO BID 01/01/20 04/08/20 History topiramate 50 mg tablet 50 mg PO DAILY tab 01/01/20 04/08/20 History albuterol sulfate 90 mcg/actuation 2 inh INHALATION Q8H PRN #6.7 g 02/09/20 04/08/20 Rx aerosol inhaler ibuprofen 600 mg PO TID PRN 02/10/20 04/08/20 History Allergies Allergy/AdvReac Type Severity Reaction Status Date / Time Penicillins Allergy Intermediate HIVES Verified 04/08/20 19:13 Past Med/Surg History Medical History Abnormal TSH Elevated creatine kinase Encounter for gynecological examination without abnormal finding Glaucoma H/O appendicitis Headache Intermittent fever of unknown origin Menopausal symptoms Otitis externa Otitis media Postcholecystectomy diarrhea Thyroid nodule Surgical History H/O oral surgery H/O tonsillitis H/O: hysterectomy H/O: hysterectomy S/P appendectomy S/P cholecystectomy S/P hysterectomy S/P tonsillectomy S/P tonsillectomy and adenoidectomy S/P tubal ligation S/P tube myringotomy Family History Brother Hypertension Grandfather (Paternal) Diabetes Mother Thyroid disorder Graves disease Grandmother (Maternal) Hypertension Breast cancer Denies family history of Ovarian cancer Prostate cancer Myocardial infarction Colorectal cancer Social History Smoking Status: Never smoker Hx Alcohol Use: No Hx Substance Use: No Preferred Language: Spanish Communication Ability: Effective Forwarder Operator Required: No Beliefs That Will Affect Care: None Current Living Situation: Spouse Current Living Situation Comment: family Feels Safe at Home: Yes Assistive Devices: Glasses Review of Systems 10 system review was performed and was negative except for pertinent positives and negatives as indicated in history of present illness Physical Exam Vital Signs Vital Signs - 24 hr 04/08/20 17:32 04/08/20 19:30 Temperature 36.3 C L Temperature Source Oral Pulse Rate 67 Pulse Rate [Radial] 68 Pulse Rhythm [Radial] Regular Pulse Strength [Radial] Normal Respiratory Rate 18 18 Respiratory Effort / Characteristics Non-Labored Spontaneous Non-Labored Spontaneous Respiratory Depth Normal Normal Respiratory Pattern Regular Regular Blood Pressure 148/85 H Blood Pressure [Left Arm] 142/94 H Blood Pressure Mean 106 Blood Pressure Mean [Left Arm] 110 Blood Pressure Position Sitting Pulse Oximetry 100 94 Oxygen Delivery Method Room Air Room Air Sepsis Recent Fever Within 48 Hours No Sepsis New/Unexplained Change in Mental Status N/A Sepsis Action Taken by Nursing No Action Required CONSTITUTIONAL: Healthy and well nourished. Patient appears in severe discomfort, and is actively vomiting on my presentation to the exam room. HEENT: Normocephalic, atraumatic. Pupils equal, round and reactive. No scleral icterus or conjunctival injection. No subconjunctival hemorrhage. NECK: Full active range of motion without discomfort. LYMPHATICS: No cervical chain adenopathy. RESPIRATORY: Clear to auscultation bilaterally with no wheezing, crackles, rhonchi or stridor. CARDIOVASCULAR: Regular rate and rhythm with no murmurs, rubs or gallops. GASTROINTESTINAL: Bowel sounds present in all quadrants. Patient has mild generalized right abdominal tenderness to palpation. Positive right CVA tenderness. Negative McBurney's point tenderness. Negative Rovsing sign. MUSCULOSKELETAL: Full range of motion of all joints without discomfort. INTEGUMENTARY: No rash or other significant dermatologic conditions noted. HEMATOLOGIC: No ecchymosis or petechiae. PSYCHIATRIC: Positive affect. NEUROLOGIC: No focal neurologic deficits noted. Course Course Patient history and physical exam were performed. Nurses notes were reviewed. Vital signs were reviewed, showing an elevated blood pressure of 148/85. The patient was not febrile or tachycardic. IV access was established, and labs were drawn. The patient was hydrated with a liter of normal saline, and administered IV morphine and Zofran shortly after my initial exam. After approximately 30 minutes, the patient still reported notable discomfort and nausea, and was then administered IV Dilaudid and additional Zofran. Review of labs showed a white count of 12.95 with left shift and 3% bands. Additional review of labs shows relatively normal CMP, LFTs and lipase. Random glucose is 125. The patient was unable to provide a urine sample prior to going to CT imaging. Noncontrast CT of the abdomen and pelvis confirms an 8 mm right UVJ calculus. The patient also has an additional 8 mm stone within the inferior pole of the right kidney. Findings were discussed with the patient. The patient reports minimal pain relief, still rating her pain a 7 out of 10. She also reported persistent and unchanged nausea. At this point, the patient was administered additional IV morphine, Toradol and Phenergan. A KUB x-ray was also performed for urology staging. Upon reevaluation, the patient reported improvement of nausea, but still persistent pain rated a 7 out of 10. At this point, the case was further discussed with Dr. Núñez, ED attending physician, who recommended urology consultation. The case was then discussed with Dr. Matt, urologist, who recommended observation status with IV hydration, analgesics and n.p.o. status after midnight. The case was then discussed with Dr. Stapleton, [facility] hospitalist. Please see the hospitalist and urology dictations for further treatment and final disposition. Prior to transfer of care, the patient did provide a urine sample for urinalysis; this had not been completed at the time of this dictation. The patient was also administered an additional dose of IV Dilaudid for her pain. She did report improvement of her nausea. Administered Medications Discontinued Medications Hydromorphone HCl (Hydromorphone Inj 0.5 Mg/0.5 Ml Syr) 0.5 mg IV NOW STA Stop: 04/08/20 18:19 Last Admin: 04/08/20 18:33 Dose: 0.5 mg Documented by: [id number] Sodium Chloride (Nss 1000ml) 1,000 mls @ 999 mls/hr IV .Q1H1M ONE Stop: 04/08/20 18:46 Last Infusion: 04/08/20 19:19 Dose: 0 mls/hr Documented by: [id number] Admin: 04/08/20 17:57 Dose: 999 mls/hr Documented by: [id number] Promethazine HCl (Phenergan) 12.5 mg in 50.5 mls @ 202 mls/hr IV NOW STA Stop: 04/08/20 19:44 Last Infusion: 04/08/20 20:05 Dose: 0 mls/hr Documented by: [id number] Admin: 04/08/20 19:45 Dose: 202 mls/hr Documented by: [id number] Ketorolac Tromethamine (Ketorolac 30 Mg/Ml Vial) 30 mg IV NOW STA Stop: 04/08/20 19:31 Last Admin: 04/08/20 19:42 Dose: 30 mg Documented by: [id number] Morphine Sulfate (Morphine Sulfate 4 Mg/Ml 1 Ml Carp\Vial) 4 mg IV NOW STA Stop: 04/08/20 17:47 Last Admin: 04/08/20 17:57 Dose: 4 mg Documented by: [id number] Morphine Sulfate (Morphine Sulfate 10 Mg/Ml Carp/Vial) 6 mg IV NOW STA Stop: 04/08/20 19:31 Last Admin: 04/08/20 19:43 Dose: Not Given Documented by: [id number] Morphine Sulfate (Morphine Sulfate 4 Mg/Ml 1 Ml Carp\Vial) Confirm Administered Dose 4 mg .ROUTE .STK-MED ONE Stop: 04/08/20 19:36 Last Admin: 04/08/20 19:43 Dose: 4 mg Documented by: [id number] Morphine Sulfate (Morphine Sulfate 2 Mg/Ml Carp) Confirm Administered Dose 2 mg .ROUTE .STK-MED ONE Stop: 04/08/20 19:37 Last Admin: 04/08/20 19:43 Dose: 2 mg Documented by: [id number] Ondansetron HCl (Ondansetron Inj 2 Mg/Ml 2 Ml Vial) 4 mg IV NOW STA Stop: 04/08/20 17:47 Last Admin: 04/08/20 17:58 Dose: 4 mg Documented by: [id number] Ondansetron HCl (Ondansetron Inj 2 Mg/Ml 2 Ml Vial) 4 mg IV NOW STA Stop: 04/08/20 18:19 Last Admin: 04/08/20 18:33 Dose: 4 mg Documented by: [id number] Medical Decision Making Medical Records Attestation: I reviewed the patient's medical records. Home Medications Current Medication List: was personally reviewed by me Laboratory Data Attestation: I reviewed the patient's lab results. Result diagrams: 04/08/20 17:44 04/08/20 17:44 Lab Results 04/08/20 04/08/20 Range/Units 17:44 17:44 WBC 12.95 H (4.8-10.8) K/uL RBC 5.03 (4.2-5.4) M/uL Hgb 15.8 (12.0-16.0) g/dL Hct 45.8 (37-47) % MCV 91.1 (80-100) fL MCH 31.4 (25-34) pg MCHC 34.5 (32-36) g/dL RDW Std Deviation 43.2 (36.4-46.3) fL RDW Coeff of Dannie 13.2 (11.5-14.5) % Plt Count 327 (130-400) K/uL MPV 9.2 (7.4-10.4) fL Immature Gran % (Auto) 0.2 % Neut % (Auto) 58.4 % Lymph % (Auto) 30.9 % Roosevelt % (Auto) 4.6 % Eos % (Auto) 5.7 % Baso % (Auto) 0.2 % Neut # (Auto) 7.56 H (1.4-6.5) K/uL Lymph # (Auto) 4.00 H (1.2-3.4) K/uL Roosevelt # (Auto) 0.60 H (0.11-0.59) K/uL Eos # (Auto) 0.74 H (0-0.5) K/uL Baso # (Auto) 0.02 (0-0.2) K/uL Immature Gran # (Auto) 0.03 H (0.00-0.02) K/uL Sodium 142 (136-145) mmol/L Potassium 3.7 (3.5-5.1) mmol/L Chloride 113 H (98-107) mmol/L Carbon Dioxide 22 (21-32) mmol/L Anion Gap 7.0 (3-11) BUN 8 (7-18) mg/dl Creatinine 0.87 (0.6-1.2) mg/dl Est Cr Clr Drug Dosing Not Reportable Est GFR ( Amer) 97.3 Est GFR (Non-Af Amer) 83.9 BUN/Creatinine Ratio 9.4 L (10-20) Glucose 125 H (70-99) mg/dl Calcium 9.8 (8.5-10.1) mg/dl Total Bilirubin 0.3 (0.2-1) mg/dl AST 21 (15-37) U/L ALT 40 (12-78) U/L Alkaline Phosphatase 63 (45-117) U/L Total Protein 7.0 (6.4-8.2) gm/dl Albumin 3.8 (3.4-5.0) gm/dl Globulin 3.2 (2.5-4.0) gm/dl Albumin/Globulin Ratio 1.2 (0.9-2) Lipase 140 (73-393) U/L Imaging Data Attestation: I personally reviewed and interpreted this imaging study as follows: My Impression: My interpretation of a noncontrast CT of the abdomen and pelvis confirms an 8 mm right UVJ calculus with moderate hydroureteronephrosis. An additional 8 mm stone is noted within the inferior right kidney. No evidence f or appendicitis, diverticulitis, obstruction or other acute intra-abdominal findings. My interpretation of a KUB x-ray does not show any additional findings other than the visualized 8 mm distal right UVJ calculus seen on CT. Radiologist reports were also reviewed. Radiologist's Impression: CT SCAN OF THE ABDOMEN AND PELVIS WITHOUT IV CONTRAST CLINICAL HISTORY: Right flank pain. COMPARISON STUDY: Abdominal CT dated 06/17/2014. TECHNIQUE: CT scan of the abdomen and pelvis is performed from the lung bases to the proximal femora. Images are reviewed in the axial, sagittal, and coronal planes. IV contrast was not administered for this examination. A dose lowering technique was utilized adhering to the principles of ALARA. CT DOSE: 1078.98 mGycm FINDINGS: Lung bases: The heart is normal in size and without pericardial effusion. There are trace pleural effusions. Atelectasis is seen at both lung bases. There is no airspace consolidation typical for pneumonia. Liver: The unenhanced liver is enlarged, measuring 22.2 cm in length. The liver demonstrates diffusely diminished attenuation consistent with severe steatosis. There is no intrahepatic biliary ductal dilatation. Gallbladder: Surgically absent noting clips in the gallbladder fossa. Spleen: Normal in size and attenuation. Pancreas: Unremarkable. Adrenal glands: Unremarkable. Kidneys: The unenhanced kidneys are normal in size. The right kidney is edematous. There is an 8 mm obstructing calculus identified in the distal right ureter just above the vesicoureteral junction seen on image #[id number]. This causes moderate right hydroureteronephrosis. There is associated right-sided perinephric and periureteric stranding. An additional 8 mm nonobstructing calculus is seen in the lower pole of the right kidney. There is a punctate nonobstructing calculus in the right upper pole. No left renal calculi are identified and there is no left-sided hydronephrosis. There is no evidence of contour deforming renal mass lesion. Abdominal vasculature: The abdominal aorta is normal in course and caliber. Bowel: There is mild colonic diverticulosis without CT evidence of acute diverticulitis. No bowel obstruction is seen. The appendix is not identified and reported surgically absent. Peritoneum: There is no intraperitoneal free air or abdominal ascites. There is a small fat-containing umbilical hernia. Lymphadenopathy: None. Pelvic viscera: The bladder is decompressed and grossly unremarkable. The uterus is surgically absent. No adnexal lesion is seen. Skeletal structures: No lytic or blastic lesions are seen. Sclerotic change is noted in the sacroiliac joints. IMPRESSION: 1. There is an 8 mm obstructing calculus identified in the distal right ureter just above the vesicoureteral junction. This causes moderate right hydroureteronephrosis. 2. Additional nonobstructing right renal calculi as above. 3. Hepatomegaly and severe hepatic steatosis. 4. Trace pleural effusions. 5. Mild colonic diverticulosis without CT evidence of acute diverticulitis. 6. Additional findings as above. KUB CLINICAL HISTORY: Right ureteral stone. FINDINGS: 2 AP supine abdominal radiographs are correlated with abdominal CT performed the same day 04/08/2020. Cholecystectomy clips are seen in the right upper quadrant. An 8 mm calculus is again seen projecting over the distal right ureter. An additional 8 mm calculus projects over the lower pole of the right kidney. No calcifications are seen projecting over the left kidney. The liver is enlarged. There is no bowel obstruction. The bony structures appear intact. IMPRESSION: 1. An 8 mm calculus is again seen projecting over the distal right ureter. 2. An additional 8 mm calculus projects over the lower pole of the right kidney. Prescription Drug Monitoring [place] Drug Monitoring Program reviewed and no issues identified Blood Pressure Blood Pressure Findings: Elevated blood pressure MDM Narrative Patient presents with severe right flank pain, nausea and vomiting. CT imaging does show evidence for an obstructing 8 mm right distal UVJ calculus with moderate hydroureteronephrosis. She also has a nonobstructing eater right inferior pole nephrolithiasis. The patient is afebrile and has no leukocytosis to suggest overwhelming infection. Patient currently does not show evidence for acute kidney injury on labs. CT imaging also is not suggestive of other etiologies such as appendicitis, diverticulitis or bowel obstruction. Lab oratory studies are also not suggestive of pancreatitis, cholecystitis or hepatitis. Urinalysis is pending to rule out UTI. Impression & Plan Hydronephrosis with urinary obstruction due to ureteral calculus, Right nephrolithiasis Discharge Plan Visit Data Chief Complaint: Flank Pain Stated Complaint: KIDNEY PAIN, VOMITING ED Provider: Scott Núñez ED Midlevel Provider: Ankur Laurent Discharge Problem: Hydronephrosis with urinary obstruction due to ureteral calculus, Right nephrolithiasis Forms Stand Alone Forms: [employer] Prescriptions Prescriptions: No Action multivitamin [One-A-Day Essential] tablet 1 tab PO DAILY RF: 0 timolol maleate 0.5 % drops 1 drops OPB DAILY RF: 0 latanoprost 0.005 % drops 1 drops OPB QPM RF: 0 buspirone 7.5 mg tablet 7.5 mg PO BID RF: 0 topiramate 50 mg tablet 50 mg PO DAILY RF: 0 albuterol sulfate [Ventolin HFA] 90 mcg/actuation HFA aerosol inhaler 2 inh inhalation Q8H PRN (Reason: shortness of breath or wheezing) Qty: 6.7 RF: 3 cholecalciferol (vitamin D3) 5,000 unit capsule 5,000 units PO DAILY Qty: 30 RF: 0 citalopram 40 mg tablet 40 mg PO DAILY Qty: 90 RF: 3 ibuprofen 200 mg Tablet 600 mg PO TID PRN (Reason: Pain) RF: 0
--- NOTE | 2020-04-08 19:11 | CT Scan Report ---
CT SCAN OF THE ABDOMEN AND PELVIS WITHOUT IV CONTRAST CLINICAL HISTORY: Right flank pain. COMPARISON STUDY: Abdominal CT dated 06/17/2014. TECHNIQUE: CT scan of the abdomen and pelvis is performed from the lung bases to the proximal femora. Images are reviewed in the axial, sagittal, and coronal planes. IV contrast was not administered for this examination. A dose lowering technique was utilized adhering to the principles of ALARA. CT DOSE: 1078.98 mGycm FINDINGS: Lung bases: The heart is normal in size and without pericardial effusion. There are trace pleural eff usions. Atelectasis is seen at both lung bases. There is no airspace consolidation typical for pneumo agvin. Liver: The unenhanced liver is enlarged, measuring 22.2 cm in length. The liver demonstrates diffusel y diminished attenuation consistent with severe steatosis. There is no intrahepatic biliary ductal di latation. Gallbladder: Surgically absent noting clips in the gallbladder fossa. Spleen: Normal in size and attenuation. Pancreas: Unremarkable. Adrenal glands: Unremarkable. Kidneys: The unenhanced kidneys are normal in size. The right kidney is edematous. There is an 8 mm o bstructing calculus identified in the distal right ureter just above the vesicoureteral junction seen on image #416. This causes moderate right hydroureteronephrosis. There is associated right-sided per inephric and periureteric stranding. An additional 8 mm nonobstructing calculus is seen in the lower pole of the right kidney. There is a punctate nonobstructing calculus in the right upper pole. No lef t renal calculi are identified and there is no left-sided hydronephrosis. There is no evidence of con tour deforming renal mass lesion. Abdominal vasculature: The abdominal aorta is normal in course and caliber. Bowel: There is mild colonic diverticulosis without CT evidence of acute diverticulitis. No bowel obs truction is seen. The appendix is not identified and reported surgically absent. Peritoneum: There is no intraperitoneal free air or abdominal ascites. There is a small fat-containin g umbilical hernia. Lymphadenopathy: None. Pelvic viscera: The bladder is decompressed and grossly unremarkable. The uterus is surgically absent . No adnexal lesion is seen. Skeletal structures: No lytic or blastic lesions are seen. Sclerotic change is noted in the sacroilia c joints. IMPRESSION: 1. There is an 8 mm obstructing calculus identified in the distal right ureter just above the vesicou reteral junction. This causes moderate right hydroureteronephrosis. 2. Additional nonobstructing right renal calculi as above. 3. Hepatomegaly and severe hepatic steatosis. 4. Trace pleural effusions. 5. Mild colonic diverticulosis without CT evidence of acute diverticulitis. 6. Additional findings as above. ACT 112: Positive. There are findings on this exam that require communication between the performing entity and the patient following Patient Test Result Information Act ([place] Act 112) guidelines. Electronically signed by: Adama Loera M.D. 04/08/2020 7:09 PM
[2020-04-08] MEDS ORDERED: KETOROLAC 30 MG/ML VIAL IV STA (19:30)
[2020-04-08] MEDS ORDERED: PROMETHAZINE 12.5 MG/50.5 ML BAG IV STA (19:30)
[2020-04-08] MEDS ORDERED: MoRPHine SULFATE 10 MG/ML CARP/VIAL IV STA (19:30)
[2020-04-08] MEDS ORDERED: MoRPHine SULFATE 4 MG/ML 1 ML CARP\\VIAL ONE (19:35)
[2020-04-08] MEDS ORDERED: MoRPHine SULFATE 2 MG/ML CARP ONE (19:36)
--- NOTE | 2020-04-08 20:08 | XRay Report ---
KUB CLINICAL HISTORY: Right ureteral stone. FINDINGS: 2 AP supine abdominal radiographs are correlated with abdominal CT performed the same day . Cholecystectomy clips are seen in the right upper quadrant. An 8 mm calculus is again seen projecting over the distal right ureter. An additional 8 mm calculus projects over the lower pole of the right kidney. No calcifications are seen projecting over the left kidney. The liver is enlarged. There is no bowel obstruction. The bony structures appear intact. IMPRESSION: 1. An 8 mm calculus is again seen projecting over the distal right ureter. 2. An additional 8 mm calculus projects over the lower pole of the right kidney. Electronically signed by: Adama Loera M.D. 04/08/2020 8:07 PM
[2020-04-08 21:14] LABS: Appearance Urine Cloudy (Clear); Bacteria Urine Automated 1+ (Negative); Bilirubin Urine Negative (Negative); Blood Urine 1+ (Negative); Color Urine Yellow; Epithelial Cell Urine Auto >30 /lpf (0-5); Glucose Urine UA Negative (Negative); Ketones Urine Negative (Negative); Leukocyte Esterase Urine Negative (Negative); Nitrite Urine Negative (Negative); Protein Urine Trace (Negative); Urobilinogen Urine Negative (Negative); pH Urine 6.5 (4.5-7.5)
--- NOTE | 2020-04-08 21:25 | History & Physical Report ---
Date of Service April 08, 2020 Assessment & Plan (1) Hydronephrosis with urinary obstruction due to ureteral calculus: 8 mm distal right obstructing ureteral calculus with moderate hydroureteronephrosis- NPO Admit to [facility] Follow urine culture and sensitivities Ceftriaxone 2 g IV daily Dilaudid 0.5 mg IV every 3 hours as needed severe pain Famotidine 20 mg IV every 12 hours NSS at 100 mils per hour Follow serial CBC with differential and chemistry profile Consult urology Dr. Matt Present on Admission?: Yes (2) Right nephrolithiasis: (3) Anxiety: For now, hold buspirone, citalopram and topiramate Present on Admission?: Yes (4) Glaucoma: Continue latanoprost and timolol eyedrops. Present on Admission?: Yes (5) Hepatic steatosis: (6) Hepatomegaly: History of Present Illness Chief Complaint: The patient presents to the emergency department with acute onset of right side, flank and back pain, with nausea and vomiting that began earlier in the morning Primary Care Provider: Aspen Berry MD The patient is a 40-year-old female with a past medical history including pneumonia, COVID-19 infection requiring hospitalization from 02/10/2020- 02/14/2020, bright red blood per rectum, thyroid nodule, postcholecystectomy diarrhea, glaucoma, anxiety and gastritis. The patient presents to the emergency department with symptoms as noted above. Work-up in the emergency department includes the following abnormal laboratories: WBC 12.95, and glucose 125. Imaging studies: CT of abdomen and pelvis shows 8 mm obstructing calculus in the distal right ureter just above the vesicoureteral junction, causing moderate right hydroureteronephrosis. There is also hepatomegaly and severe hepatic steatosis. Mild colonic diverticulosis without CT evidence of acute diverticulitis. Allergies Allergy/AdvReac Type Severity Reaction Status Date / Time Penicillins Allergy Intermediate HIVES Verified 04/08/20 19:13 Home Medications Medication Instructions Recorded Confirmed Type multivitamin 1 tab PO DAILY 10/13/18 04/08/20 History latanoprost 0.005 % eye drops 1 drops OPB QPM ml 01/04/19 04/08/20 History timolol maleate 0.5 % eye drops 1 drops OPB DAILY ml 01/04/19 04/08/20 History cholecalciferol (vitamin D3) 125 5,000 units PO DAILY #30 cap 01/06/19 04/08/20 Rx mcg (5,000 unit) capsule citalopram 40 mg tablet 40 mg PO DAILY #90 tab 01/06/19 04/08/20 Rx buspirone 7.5 mg tablet 7.5 mg PO BID 01/01/20 04/08/20 History topiramate 50 mg tablet 50 mg PO DAILY tab 01/01/20 04/08/20 History albuterol sulfate 90 mcg/actuation 2 inh INHALATION Q8H PRN #6.7 g 02/09/20 04/08/20 Rx aerosol inhaler ibuprofen 600 mg PO TID PRN 02/10/20 04/08/20 History Past Med/Surg History Medical History Abnormal TSH Elevated creatine kinase Encounter for gynecological examination without abnormal finding Glaucoma H/O appendicitis Headache Intermittent fever of unknown origin Menopausal symptoms Otitis externa Otitis media Postcholecystectomy diarrhea Thyroid nodule Surgical History H/O oral surgery H/O tonsillitis H/O: hysterectomy H/O: hysterectomy S/P appendectomy S/P cholecystectomy S/P hysterectomy S/P tonsillectomy S/P tonsillectomy and adenoidectomy S/P tubal ligation S/P tube myringotomy Family History Brother Hypertension Grandfather (Paternal) Diabetes Mother Thyroid disorder Graves disease Grandmother (Maternal) Hypertension Breast cancer Denies family history of Ovarian cancer Prostate cancer Myocardial infarction Colorectal cancer Social History Smoking Status: Never smoker Hx Alcohol Use: Yes Alcohol type: wine Hx Substance Use: No Preferred Language: Albanian Communication Ability: Effective Winding Lathe Operator Required: No Beliefs That Will Affect Care: None Current Living Situation: Family Current Living Situation Comment: with and two children. Other Information That Helps Us Care for You: No Feels Safe at Home: Yes Safety Concerns: Feels Safe At This Time Assistive Devices: Contacts and Glasses Review of Systems Review of Systems: The patient denies chest pain, palpitations, shortness of breath, dyspnea on exertion, cough, lower extremity swelling, sore throat, fevers, chills, sweats, blood in urine or stool, dysuria, urinary frequency or urgency, lightheadedness, dizziness, headache, memory loss, loss of consciousness, rash, abnormal bruising or bleeding, imbalance, focal or generalized weakness, numbness or tingling in arms or legs, generalized arthralgias or myalgias, neck pain, or night sweats. The review of systems is otherwise negative other than for that already noted above, and at least 10 systems have been reviewed. Physical Exam Physical Exam: The patient is awake, alert and oriented 3, well developed and well nourished, normocephalic and atraumatic, lying in bed and in no acute distress. HEENT--PERRL, EOMI, mucous membranes and oropharynx dry. Neck--supple. No JVD. No bruits. Thyroid normal, trachea midline, no adenopathy. Heart--normal S1 and S2. No murmurs, rubs or gallops. Lungs--clear bilaterally, no respiratory distress, no accessory muscle use. Abdomen--normal bowel sounds and soft. Tenderness right flank and right lower quadrant. Nondistended. Extremities--no cyanosis or clubbing. No edema. Dermatologic--normal skin turgor, normal color, no abnormal lymph nodes, no rash. Neurologic--cranial nerves II through XII grossly intact. Rheumatologic--limited exam due to abdominal discomfort and flank pain Psychiatric--normal affect. Results & Data Results & Data ([facility]) Vital Signs (Past 12 Hours) Vital Signs Temp Pulse Pulse Resp BP BP Pulse Ox 04/08/20 21:00 89 20 119/68 94 04/08/20 19:30 68 18 142/94 H 94 04/08/20 17:32 97.3 F L 67 18 148/85 H 100 Laboratory Results Laboratory Results WBC 12.95 K/uL (4.8-10.8) H 04/08/20 17:44 RBC 5.03 M/uL (4.2-5.4) 04/08/20 17:44 Hgb 15.8 g/dL (12.0-16.0) 04/08/20 17:44 Hct 45.8 % (37-47) 04/08/20 17:44 MCV 91.1 fL (80-100) 04/08/20 17:44 MCH 31.4 pg (25-34) 04/08/20 17:44 MCHC 34.5 g/dL (32-36) 04/08/20 17:44 RDW Std Deviation 43.2 fL (36.4-46.3) 04/08/20 17:44 RDW Coeff of Dannie 13.2 % (11.5-14.5) 04/08/20 17:44 Plt Count 327 K/uL (130-400) 04/08/20 17:44 MPV 9.2 fL (7.4-10.4) 04/08/20 17:44 Immature Gran % (Auto) 0.2 % 04/08/20 17:44 Neut % (Auto) 58.4 % 04/08/20 17:44 Lymph % (Auto) 30.9 % 04/08/20 17:44 [place] % (Auto) 4.6 % 04/08/20 17:44 Eos % (Auto) 5.7 % 04/08/20 17:44 Baso % (Auto) 0.2 % 04/08/20 17:44 Neut # (Auto) 7.56 K/uL (1.4-6.5) H 04/08/20 17:44 Lymph # (Auto) 4.00 K/uL (1.2-3.4) H 04/08/20 17:44 [place] # (Auto) 0.60 K/uL (0.11-0.59) H 04/08/20 17:44 Eos # (Auto) 0.74 K/uL (0-0.5) H 04/08/20 17:44 Baso # (Auto) 0.02 K/uL (0-0.2) 04/08/20 17:44 Immature Gran # (Auto) 0.03 K/uL (0.00-0.02) H 04/08/20 17:44 Sodium 142 mmol/L (136-145) 04/08/20 17:44 Potassium 3.7 mmol/L (3.5-5.1) 04/08/20 17:44 Chloride 113 mmol/L (98-107) H 04/08/20 17:44 Carbon Dioxide 22 mmol/L (21-32) 04/08/20 17:44 Anion Gap 7.0 (3-11) 04/08/20 17:44 BUN 8 mg/dl (7-18) 04/08/20 17:44 Creatinine 0.87 mg/dl (0.6-1.2) 04/08/20 17:44 Est Cr Clr Drug Dosing Not Reportable 04/08/20 17:44 Est GFR ( Amer) 97.3 04/08/20 17:44 Est GFR (Non-Af Amer) 83.9 04/08/20 17:44 BUN/Creatinine Ratio 9.4 (10-20) L 04/08/20 17:44 Glucose 125 mg/dl (70-99) H 04/08/20 17:44 Calcium 9.8 mg/dl (8.5-10.1) 04/08/20 17:44 Total Bilirubin 0.3 mg/dl (0.2-1) 04/08/20 17:44 AST 21 U/L (15-37) 04/08/20 17:44 ALT 40 U/L (12-78) 04/08/20 17:44 Alkaline Phosphatase 63 U/L (45-117) 04/08/20 17:44 Total Protein 7.0 gm/dl (6.4-8.2) 04/08/20 17:44 Albumin 3.8 gm/dl (3.4-5.0) 04/08/20 17:44 Globulin 3.2 gm/dl (2.5-4.0) 04/08/20 17:44 Albumin/Globulin Ratio 1.2 (0.9-2) 04/08/20 17:44 Lipase 140 U/L (73-393) 04/08/20 17:44 Urine Color Yellow 04/08/20 20:38 Urine Appearance Cloudy (Clear) A 04/08/20 20:38 Urine pH 6.5 (4.5-7.5) 04/08/20 20:38 Ur Specific [place] 1.020 (1.000-1.030) 04/08/20 20:38 Urine Protein Trace (Negative) H 04/08/20 20:38 Urine Glucose (UA) Negative (Negative) 04/08/20 20:38 Urine Ketones Negative (Negative) 04/08/20 20:38 Urine Blood 1+ (Negative) H 04/08/20 20:38 Urine Nitrite Negative (Negative) 04/08/20 20:38 Urine Bilirubin Negative (Negative) 04/08/20 20:38 Urine Urobilinogen Negative (Negative) 04/08/20 20:38 Ur Leukocyte Esterase Negative (Negative) 04/08/20 20:38 Urine WBC (Auto) 1-5 /hpf (0-5) 04/08/20 20:38 Urine RBC (Auto) 5-10 /hpf (0-4) H 04/08/20 20:38 U Hyaline Cast (Auto) 1-5 /lpf (0-5) 04/08/20 20:38 U Epithel Cells (Auto) >30 /lpf (0-5) H 04/08/20 20:38 Urine Bacteria (Auto) 1+ (Negative) H 04/08/20 20:38 POC Ur Test NEG (NEG) 04/08/20 20:38 Diagnostic Findings [facility], [phone] CT Scan Report Patient: JOSE OMALLEY EAdmit Date: 04/08/20#: [id number]: [id number] [facility] ID:[id number]: Date: 1980City Zip: [place] [address]Jdh: 40Location: EDSex: FRoom/Bed:Att Phy:Diagnosis: KIDNEY PAIN, VOMITINGPri Phy: RV. Freddie, MDService Date: 04/08/20Fa Phy:Interpreting Phy: Adama Loera [facility] Phy: Ordering Phy: Ankur Laurent PA cc: ~ CT SCAN OF THE ABDOMEN AND PELVIS WITHOUT IV CONTRAST CLINICAL HISTORY: Right flank pain. COMPARISON STUDY: Abdominal CT dated 06/17/2014. TECHNIQUE: CT scan of the abdomen and pelvis is performed from the lung bases to the proximal femora. Images are reviewed in the axial, sagittal, and coronal planes. IV contrast was not administered for this examination. A dose lowering technique was utilized adhering to the principles of ALARA. CT DOSE: 1078.98 mGycm FINDINGS: Lung bases: The heart is normal in size and without pericardial effusion. There are trace pleural effusions. Atelectasis is seen at both lung bases. There is no airspace consolidation typical for pneumonia. Liver: The unenhanced liver is enlarged, measuring 22.2 cm in length. The liver demonstrates diffusely diminished attenuation consistent with severe steatosis. There is no intrahepatic biliary ductal dilatation. Gallbladder: Surgically absent noting clips in the gallbladder fossa. Spleen: Normal in size and attenuation. Pancreas: Unremarkable. Adrenal glands: Unremarkable. Kidneys: The unenhanced kidneys are normal in size. The right kidney is edematous. There is an 8 mm obstructing calculus identified in the distal right ureter just above the vesicoureteral junction seen on image #416. This causes moderate right hydroureteronephrosis. There is associated right-sided perinephric and periureteric stranding. An additional 8 mm nonobstructing calculus is seen in the lower pole of the right kidney. There is a punctate nonobstructing calculus in the right upper pole. No left renal calculi are identified and there is no left-sided hydronephrosis. There is no evidence of contour deforming renal mass lesion. Abdominal vasculature: The abdominal aorta is normal in course and caliber. Bowel: There is mild colonic diverticulosis without CT evidence of acute diverticulitis. No bowel obstruction is seen. The appendix is not identified and reported surgically absent. Peritoneum: There is no intraperitoneal free air or abdominal ascites. There is a small fat-containing umbilical hernia. Lymphadenopathy: None. Pelvic viscera: The bladder is decompressed and grossly unremarkable. The uterus is surgically absent. No adnexal lesion is seen. Skeletal structures: No lytic or blastic lesions are seen. Sclerotic change is noted in the sacroiliac joints. IMPRESSION: 1. There is an 8 mm obstructing calculus identified in the distal right ureter just above the vesicoureteral junction. This causes moderate right hydroureteronephrosis. 2. Additional nonobstructing right renal calculi as above. 3. Hepatomegaly and severe hepatic steatosis. 4. Trace pleural effusions. 5. Mild colonic diverticulosis without CT evidence of acute diverticulitis. 6. Additional findings as above. ACT 112: Positive. There are findings on this exam that require communication between the performing entity and the patient following Patient Test Result Information Act ([place] Act 112) guidelines. Electronically signed by: Adama Loera M.D. 04/08/2020 7:09 PM Dictated: 04/08/201903Transcribed: 04/08/201903 Code Status & VTE Plan Code Status Full code VTE Prophylaxis Plan VTE Prophylaxis will be ordered: Yes PG Care Time/CCT Total # of Minutes Spent Total Time Spent with Patient: Total time spent is greater than 50% in coordination of care (as documented) at patient's floor/unit and/or counseling patient: Coding Level of Care Code 09346 Initial Inpt Care Lvl 3 Diagnoses Hydronephrosis with urinary obstruction due to ureteral calculus N13.2 Right nephrolithiasis N20.0 Anxiety F41.9 Glaucoma H40.9 Glaucoma type: unspecified Laterality: unspecified laterality Hepatic steatosis K76.0 Hepatomegaly R16.0 (1) Glaucoma Glaucoma type: unspecified Laterality: unspecified laterality Qualified Code(s): H40.9 - Unspecified glaucoma
[2020-04-09] MEDS ORDERED: cefTRIAXone SODIUM 2,000 MG in DEXTROSE 5% 50 ML IV SCH
[2020-04-09] MEDS: NSS + 20MEQ KCL 20 MEQ/1,000 ML BAG IV SCH ×3 (00:19→13:47)
[2020-04-09] MEDS: FAMOTIDINE 20 MG in SYRINGE 3 ML IV SCH ×3 (00:19→21:20)
[2020-04-09] MEDS: HYDROmorphone INJ 0.5 MG/0.5 ML SYR IV PRN ×2 (05:26→08:29)
[2020-04-09] MEDS: TIMOLOL MALEATE 0.5% OP SOLN 5 ML BTL OP SCH (08:29)
--- NOTE | 2020-04-09 09:05 | Urology Consultation ---
Date of Consultation April 09, 2020 Assessment & Plan (1) Hydronephrosis with urinary obstruction due to ureteral calculus: Risks and benefits discussed at length for procedure. These include bleeding, infection, injury to surrounding tissues or organs, and risks associated with anesthesia. Patient states understanding and agrees to proceed. Will sign consent and proceed. Plan for cystoscopy with right stent and possible stone treatment (2) Right nephrolithiasis: History of Present Illness Attending Physician: Luis Peters MD History of Present Illness New consultation for patient with stone, discomfort, obstruction, and ill feelings. Patient developed sudden onset of pain into flank going down and radiating into groin and back in waves comes and goes. Can be severe at times. Discussed and reviewed patient's family history for any history of stone disease. Also, discussed patient's medical surgery history especially related to any history of urinary issues or stone disease. Patient was admitted and is undergoing observation. Allergies Allergy/AdvReac Type Severity Reaction Status Date / Time Penicillins Allergy Intermediate HIVES Verified 04/08/20 19:13 Home Medications Medication Instructions Recorded Confirmed Type multivitamin 1 tab PO DAILY 10/13/18 04/08/20 History latanoprost 0.005 % eye drops 1 drops OPB QPM ml 01/04/19 04/08/20 History timolol maleate 0.5 % eye drops 1 drops OPB DAILY ml 01/04/19 04/08/20 History cholecalciferol (vitamin D3) 125 5,000 units PO DAILY #30 cap 01/06/19 04/08/20 Rx mcg (5,000 unit) capsule citalopram 40 mg tablet 40 mg PO DAILY #90 tab 01/06/19 04/08/20 Rx buspirone 7.5 mg tablet 7.5 mg PO BID 01/01/20 04/08/20 History topiramate 50 mg tablet 50 mg PO DAILY tab 01/01/20 04/08/20 History albuterol sulfate 90 mcg/actuation 2 inh INHALATION Q8H PRN #6.7 g 02/09/20 04/08/20 Rx aerosol inhaler ibuprofen 600 mg PO TID PRN 02/10/20 04/08/20 History Patient History Medical History Abnormal TSH Elevated creatine kinase Encounter for gynecological examination without abnormal finding Glaucoma H/O appendicitis Headache Hepatic steatosis Hepatomegaly Intermittent fever of unknown origin Menopausal symptoms Otitis externa Otitis media Postcholecystectomy diarrhea Thyroid nodule Surgical History H/O oral surgery H/O tonsillitis H/O: hysterectomy H/O: hysterectomy S/P appendectomy S/P cholecystectomy S/P hysterectomy S/P tonsillectomy S/P tonsillectomy and adenoidectomy S/P tubal ligation S/P tube myringotomy Family History Brother Hypertension Grandfather (Paternal) Diabetes Mother Thyroid disorder Graves disease Grandmother (Maternal) Hypertension Breast cancer Denies family history of Ovarian cancer Prostate cancer Myocardial infarction Colorectal cancer Social History Smoking Status: Never smoker Hx Alcohol Use: Yes Alcohol type: wine Hx Substance Use: No Preferred Language: Albanian Communication Ability: Effective Adzing And Boring Machine Helper Required: No Beliefs That Will Affect Care: None Current Living Situation: Family Current Living Situation Comment: with and two children. Other Information That Helps Us Care for You: No Feels Safe at Home: Yes Safety Concerns: Feels Safe At This Time Assistive Devices: Contacts and Glasses Review of Systems Review of Systems: All systems reviewed & are unremarkable except as noted in HPI & below Physical Exam Physical Exam: General: Alert and oriented x 3 in no acute distress. Patient is well nourished and well kept. HEENT: Normocephalic Atraumatic. Inspection normal. Cranial Nerves 2-12 Grossly intact. Nares are clear. Neck is supple. Normal inspection of face. Normal inspection of neck. Neurologic: No deficits on inspection. Baseline for motor function and sensory. Psychologic: Normal affect. Respiratory: Nonlabored. No use of accessory muscles. No tachypnea or dyspnea. Cardiovascular: No tachycardia Skin: [place] and Dry. No rashes or visible lesions. Extremities: Moving without issues. No motor deficits on inspection Lymphatics: No edema Abdomen: Soft Non-distended. No acites. No rebound or guarding. Obese Results & Data ([facility]) Vital Signs (Past 12 Hours) Vital Signs Temp Pulse Pulse Pulse Resp BP BP 04/09/20 07:46 37.2 C 75 20 107/65 04/08/20 23:46 36.6 C 72 18 107/61 04/08/20 23:12 79 20 135/78 04/08/20 23:00 79 20 135/78 04/08/20 22:55 Pulse Ox 04/09/20 07:46 96 04/08/20 23:46 97 04/08/20 23:12 97 04/08/20 23:00 97 04/08/20 22:55 84 L PG Care Time/CCT Total # of Minutes Spent Total Time Spent with Patient: Total time spent is greater than 50% in coordination of care (as documented) at patient's floor/unit and/or counseling patient: Coding Level of Care Code 97065 Inpt Consult Level 5 Diagnoses Hydronephrosis with urinary obstruction due to ureteral calculus N13.2 Right nephrolithiasis N20.0
[2020-04-09] MEDS ORDERED: LIDOCAINE HCL 2% 2 ML VIAL/AMP(20MG/ML) INFIL ONE (09:51)
[2020-04-09] MEDS ORDERED: MIDAZOLAM HCL 1 MG/ML 2ML VIAL ONE (09:51)
[2020-04-09] MEDS ORDERED: fentaNYL citrate 100 MCG/2 ML VIAL ONE (09:51)
[2020-04-09] MEDS ORDERED: ONDANSETRON INJ 2 MG/ML 2 ML VIAL ONE (09:51)
[2020-04-09] MEDS ORDERED: PROPOFOL IV EMULSION 10 MG/ML 20 ML VIAL IV ONE (09:51)
[2020-04-09] MEDS ORDERED: ATROPINE SULFATE 0.1 MG/ML 10ML SYR IV PRN (10:06)
[2020-04-09] MEDS ORDERED: ONDANSETRON INJ 2 MG/ML 2 ML VIAL IV PRN (10:06)
[2020-04-09] MEDS ORDERED: HYDROmorphone INJ 1 MG/ML SYRINGE IV PRN (10:06)
[2020-04-09] MEDS ORDERED: fentaNYL citrate 100 MCG/2 ML VIAL IV PRN (10:06)
[2020-04-09] MEDS ORDERED: ePHEDrine sulfate 50 MG/ML AMP IV PRN (10:06)
--- NOTE | 2020-04-09 10:06 | Anesthesiology Consultation ---
Date of Service April 09, 2020 Assessment & Plan (1) Encounter for pre-operative examination: History Surgery Operation Date: 04/09/20 08:00 Proposed Procedures p Cystoscopy - Melvin Matt DO s Ureteral Stent Insertion/Removal(Right) - Melvin Matt DO Height/Weight Height: 5 ft 5 in Weight: 91.7 kg Allergies Allergy/AdvReac Type Severity Reaction Status Date / Time Penicillins Allergy Intermediate HIVES Verified 04/08/20 19:13 Medications Home Medications Medication Instructions Recorded Confirmed Last Taken multivitamin 1 tab PO DAILY 10/13/18 04/08/20 Unknown latanoprost 0.005 % eye drops 1 drops OPB QPM ml 01/04/19 04/08/20 Unknown timolol maleate 0.5 % eye drops 1 drops OPB DAILY ml 01/04/19 04/08/20 Unknown cholecalciferol (vitamin D3) 125 5,000 units PO DAILY #30 cap 01/06/19 04/08/20 Unknown mcg (5,000 unit) capsule citalopram 40 mg tablet 40 mg PO DAILY #90 tab 01/06/19 04/08/20 Unknown buspirone 7.5 mg tablet 7.5 mg PO BID 01/01/20 04/08/20 Unknown topiramate 50 mg tablet 50 mg PO DAILY tab 01/01/20 04/08/20 Unknown albuterol sulfate 90 mcg/actuation 2 inh INHALATION Q8H PRN #6.7 g 02/09/20 04/08/20 Unknown aerosol inhaler ibuprofen 600 mg PO TID PRN 02/10/20 04/08/20 Unknown Active Medications Generic Name Dose Route Start Last Admin Trade Name Freq PRN Reason Stop Dose Admin Hydromorphone HCl 0.5 mg 04/08/20 23:40 04/09/20 08:29 Hydromorphone Inj 0.5 Mg/0.5 Ml Syr IV 04/22/20 23:39 0.5 mg Q3H PRN Administration Severe Pain Potassium Chloride/Sodium Chloride 20 meq in 1,000 mls @ 80 mls/hr 04/08/20 23:40 04/09/20 01:03 Normal Saline W/20 Meq Kcl IV 05/08/20 23:39 80 mls/hr .[id number] [facility]A Infusion Famotidine 20 mg/ Syringe 5 mls @ 2.5 mls/min 04/08/20 23:40 04/09/20 08:29 IV 05/08/20 23:39 2.5 mls/min Q12 [facility] Administration Ceftriaxone Sodium 2,000 mg/ 70 mls @ 100 mls/hr 04/09/20 00:00 04/09/20 01:01 Dextrose IV 04/19/20 00:00 Infused Q24H [facility] Infusion Protocol Timolol Maleate 1 drops 04/09/20 09:00 04/09/20 08:29 Timolol Maleate 0.5% Op Soln 5 Ml Btl OP 05/09/20 08:59 1 drops DAILY MINA Administration Past Medical History Medical History Abnormal TSH Elevated creatine kinase Encounter for gynecological examination without abnormal finding Glaucoma H/O appendicitis Headache Hepatic steatosis Hepatomegaly Intermittent fever of unknown origin Menopausal symptoms Otitis externa Otitis media Postcholecystectomy diarrhea Thyroid nodule Past Family History Family History Brother Hypertension Grandfather (Paternal) Diabetes Mother Thyroid disorder Graves disease Grandmother (Maternal) Hypertension Breast cancer Denies family history of Ovarian cancer Prostate cancer Myocardial infarction Colorectal cancer Past Surgical History Surgical History H/O oral surgery H/O tonsillitis H/O: hysterectomy H/O: hysterectomy S/P appendectomy S/P cholecystectomy S/P hysterectomy S/P tonsillectomy S/P tonsillectomy and adenoidectomy S/P tubal ligation S/P tube myringotomy Social History Smoking Status: Never smoker Hx Alcohol Use: Yes Alcohol type: wine alcohol intake frequency: a few times a month Hx Substance Use: No Physical Exam Vital Signs Last Vital Signs Temp 37.2 C 04/09/20 07:46 Pulse 75 04/09/20 07:46 Resp 20 04/09/20 07:46 BP 107/65 04/09/20 07:46 Pulse Ox 96 04/09/20 07:46 Testing Laboratory Results 04/08/20 17:44 04/08/20 17:44 Urine Color Yellow 04/08/20 20:38 Urine Appearance Cloudy (Clear) A 04/08/20 20:38 Urine pH 6.5 (4.5-7.5) 04/08/20 20:38 Ur Specific [place] 1.020 (1.000-1.030) 04/08/20 20:38 Urine Protein Trace (Negative) H 04/08/20 20:38 Urine Glucose (UA) Negative (Negative) 04/08/20 20:38 Urine Ketones Negative (Negative) 04/08/20 20:38 Urine Nitrite Negative (Negative) 04/08/20 20:38 Ur Leukocyte Esterase Negative (Negative) 04/08/20 20:38 Urine WBC (Auto) 1-5 /hpf (0-5) 04/08/20 20:38 Urine RBC (Auto) 5-10 /hpf (0-4) H 04/08/20 20:38 U Hyaline Cast (Auto) 1-5 /lpf (0-5) 04/08/20 20:38 U Epithel Cells (Auto) >30 /lpf (0-5) H 04/08/20 20:38 Urine Bacteria (Auto) 1+ (Negative) H 04/08/20 20:38 04/08/20 20:38 POC Ur Test NEG Electrocardiogram Date: 02/10/20 Normal sinus rhythm Cannot rule out Anterior infarct , age undetermined Abnormal ECG When compared with ECG of 19-APR-2016 22:47, No significant change was found Confirmed by Lee Romero ([id number]) on 02/12/2020 9:35:38 PM
[2020-04-09] MEDS ORDERED: KETAMINE 50 MG/5 ML SYRINGE ONE (10:39)
[2020-04-09] MEDS ORDERED: DEXAMETHASONE SOD INJ 4 MG/ML VIAL ONE (10:48)
--- NOTE | 2020-04-09 11:03 | Operative Report ---
PG Post Operative Report Pre & Post Diagnosis Pre: Ureteral Stone Post: Same, urethral stricture. Operation Date: 04/09/20 08:00 <No data on this case meets the specified criteria> I identified the patient and participated in the time-out.: Yes Procedure Cystoscopy with urethral dilation and right retrograde pyelogram, aspiration, and stent placement. Operation Date: 04/09/20 08:00 <No data on this case meets the specified criteria> Surgeon Melvin Matt, II, DO Meat Counter Clerk None Estimated Blood Loss 1 Findings Consistent with Post-Op Diagnosis Stent placed in good position. Stricture of meatus with significant debris from right renal pelvis. Specimens Urine right kidney Drains 6 Fr Multilength Right Anesthesia Type MAC Complications none Disposition Disposition: Recovery Room Indications Patient with obstruction. Risks and benefits discussed at length. Description of Procedure Patient was consented and brought back to the operating room. Patient was placed under anesthesia in the supine position and moved to the dorsal lithotomy position. Patient was prepped and draped in the regular sterile fashion. A time out was completed. A 30degree Cystoscope was placed into the bladder after dilating the urethra and the entire bladder was examined. The UO's were identified. The UO on the right was cannulized with a catheter, urine was aspirated, and a retrograde pyelogram was completed. A wire was then placed. With the wire in place, a 6 Fr Double J stent was placed. It was confirmed with fluoroscopy. With the stent in place, the bladder was emptied. The scope was removed. The patient was cleaned, aroused from anesthesia, and transferred to the pacu in stable condition having tolerated the procedure well with no complications. I was present and participated in all aspects of the procedure. The patient will be monitored in the PACU until transferred. I attest to the content of the Intraoperative Record and any orders documented therein. Any exceptions are noted below.
--- NOTE | 2020-04-09 11:15 | Anesthesiology Progress Note ---
Date of Service April 09, 2020 Anesthesia Post Procedure Vital Signs Vital Signs: Temp Pulse Pulse Pulse Resp BP BP 04/09/20 07:46 37.2 C 75 20 107/65 04/08/20 23:46 36.6 C 72 18 107/61 04/08/20 23:12 79 20 135/78 04/08/20 23:00 79 20 135/78 04/08/20 22:55 04/08/20 21:00 89 20 119/68 04/08/20 19:30 68 18 142/94 H 04/08/20 17:32 36.3 C L 67 18 148/85 H Pulse Ox 04/09/20 07:46 96 04/08/20 23:46 97 04/08/20 23:12 97 04/08/20 23:00 97 04/08/20 22:55 84 L 04/08/20 21:00 94 04/08/20 19:30 94 04/08/20 17:32 100 Pain Intensity Right Flank: Pain Intensity: 4 Transfer of Care Handoff Completed per policy Notes Mental Status: alert / awake / arousable and participated in evaluation Patient Amnestic to Procedure: Yes Nausea / Vomiting: adequately controlled Pain: adequately controlled Airway Patency, RR, SpO2: stable & adequate BP & HR: stable & adequate Hydration State: stable & adequate Anesthetic Complications: no major complications apparent and Pt Satisfied with anesthetic care
--- NOTE | 2020-04-09 13:01 | Hospitalist Progress Note ---
Date of Service April 09, 2020 Assessment & Plan (1) Hydronephrosis with urinary obstruction due to ureteral calculus: 8 mm distal right obstructing ureteral calculus with moderate hydroureteronephrosis. - S/p cystosctopy, stricture dilation, and stent placement with Dr. Matt on 04/09. - Post-operative care per surgery - Continue cefepime per urology -> Follow cultures - Pain control (2) Anxiety: No overt symptoms today. - Continue home buspirone, citalopram, and topiramate (3) Glaucoma: - Continue latanoprost and timolol eyedrops. (4) Hepatic steatosis: No inpatient needs. (5) DVT prophylaxis: Heparin 5000 units SQ Q12h Admission and Anticipated Discharge Date Admission Date: April 08, 2020 Subjective Very sleepy after procedure, but no pain at present. Reports no fevers/chills, chest pain, shortness of breath, abdominal pain, nausea, or vomiting. Physical Exam Constitutional: WD/WN, vitals as above Eyes: EOM intact bilaterally; no conjunctival abnormality ENMT: external ear and nose normal, oropharynx normal Neck: trachea midline, no thyromegaly normal visual inspection Respiratory: normal respiratory effort, lungs clear to auscultation no respiratory distress Cardiovascular: RRR, no murmur, no edema Gastrointestinal (Abdomen): Inspection/Auscultation: abdomen normal to inspection; abdomen not distended Musculoskeletal: no cyanosis or clubbing, extremities motor strength 5/5 Skin: no rashes, warm and dry Neurologic: moves all extremities and awake Psychiatric: Orientation: alert, oriented to person and cooperative Results & Data Results & Data ([facility]) Vital Signs (Past 12 Hours) Vital Signs Temp Pulse Pulse Resp BP BP Pulse Ox 04/09/20 11:45 36.5 C 69 14 101/64 92 04/09/20 11:25 37 C 73 16 106/59 L 93 04/09/20 11:15 82 16 111/71 93 04/09/20 11:08 37.3 C 82 18 111/68 97 04/09/20 07:46 37.2 C 75 20 107/65 96 PG Care Time/CCT Total # of Minutes Spent Total Time Spent with Patient: Total time spent is greater than 50% in coordination of care (as documented) at patient's floor/unit and/or counseling patient: Coding Level of Care Code 35491 Subseq Hosp Care Lvl 2 Diagnoses Hydronephrosis with urinary obstruction due to ureteral calculus N13.2 Anxiety F41.9 Glaucoma H40.9 Glaucoma type: unspecified Laterality: unspecified laterality Hepatic steatosis K76.0 DVT prophylaxis Z29.9 (1) Glaucoma Glaucoma type: unspecified Laterality: unspecified laterality Qualified Code(s): H40.9 - Unspecified glaucoma
--- NOTE | 2020-04-09 13:41 | Fluoroscopy Report ---
FL retrograde includes kub HISTORY: 40 years-old Female RETROGRADE right ureteral calculus COMPARISON: CT abdomen and pelvis 04/08/2020 TECHNIQUE: 2 spot fluoroscopic images of the right abdomen and pelvis were obtained utilizing 20.2 se conds fluoroscopy time FINDINGS: Status post placement of a right ureteral stent which appears to be in satisfactory positioning. 8 mm distal ureteral calculus redemonstrated. There is persistent moderate right hydronephrosis. Surgical clip lateral to the right kidney redemonstrated. IMPRESSION: Status post placement of a right ureteral stent. ACT 112: Negative or not required by law. The above report was generated using voice recognition software. It may contain grammatical, syntax o r spelling errors. Electronically signed by: Elder Wiggins M.D. 04/09/2020 1:40 PM
[2020-04-09] MEDS: PHENAZOPYRIDINE HCL 100 MG TAB PO PRN ×2 (14:30→21:15)
[2020-04-09] MEDS: HYDROCODONE/ACETAMOPHEN 5/325MG TAB PO PRN ×2 (16:54→21:15)
[2020-04-09] MEDS: TAMSULOSIN HCL 0.4 MG CAP PO SCH (21:15)
[2020-04-09] MEDS: busPIRone 7.5 MG TAB PO SCH (21:15)
[2020-04-09] MEDS: HEPARIN SOD 5,000 UNIT/0.5 ML VIAL SQ SCH (21:24)
[2020-04-09] MEDS: CEFEPIME 2,000 MG in SYRINGE 0 ML IV SCH (21:27)
[2020-04-09] MEDS: LATANOPROST 0.005% OP SOLN 2.5 ML BTL OPB SCH (22:48)
[2020-04-10] MEDS: NSS + 20MEQ KCL 20 MEQ/1,000 ML BAG IV SCH (00:35)
[2020-04-10] MEDS: HYDROCODONE/ACETAMOPHEN 5/325MG TAB PO PRN (05:53)
[2020-04-10 06:41] LABS: Hematocrit (blood only) 37.6 % (37-47); Hemoglobin 12.8 g/dL (12.0-16.0); Mean Corpuscular Hemoglobin 31.6 pg (25-34); Mean Corpuscular Volume 92.8 fL (80-100); Mean Platelet Volume 9.2 fL (7.4-10.4); Platelet Count 272 K/uL (130-400); RDW Coefficient of Variation 13.1 % (11.5-14.5); RDW Standard Deviation 44.3 fL (36.4-46.3); Red Blood Count 4.05 M/uL (4.2-5.4); White Blood Count 11.51 K/uL (4.8-10.8)
[2020-04-10 06:48] LABS: BUN Creatinine Ratio 18.5 (10-20); Calcium 8.1 mg/dl (8.5-10.1); Creatinine Clr Calc Pharmacy 124.3 ml/min; Est GFR (African American) 127.7; Est GFR (Non-African American) 110.2; Magnesium 1.9 mg/dl (1.8-2.4); Potassium 3.9 mmol/L (3.5-5.1)
[2020-04-10] MEDS: HYDROmorphone INJ 0.5 MG/0.5 ML SYR IV PRN ×3 (06:52→20:12)
[2020-04-10] MEDS: PHENAZOPYRIDINE HCL 100 MG TAB PO PRN ×2 (09:23→23:59)
[2020-04-10] MEDS: HEPARIN SOD 5,000 UNIT/0.5 ML VIAL SQ SCH ×2 (09:23→20:13)
[2020-04-10] MEDS: busPIRone 7.5 MG TAB PO SCH ×2 (09:23→20:13)
[2020-04-10] MEDS: CITALOPRAM 40 MG TAB PO SCH (09:23)
[2020-04-10] MEDS: TOPIRAMATE 50 MG TAB PO SCH (09:23)
[2020-04-10] MEDS: FAMOTIDINE 20 MG in SYRINGE 3 ML IV SCH (09:24)
[2020-04-10] MEDS: CEFEPIME 2,000 MG in SYRINGE 0 ML IV SCH ×2 (09:24→20:12)
[2020-04-10] MEDS: TIMOLOL MALEATE 0.5% OP SOLN 5 ML BTL OP SCH (09:24)
[2020-04-10] MEDS ORDERED: ONDANSETRON INJ 2 MG/ML 2 ML VIAL IV PRN (10:40)
--- NOTE | 2020-04-10 12:26 | Urology Progress Note ---
Date of Service April 10, 2020 Assessment & Plan (1) Hydronephrosis with urinary obstruction due to ureteral calculus: Postop day 1 status post stent placement. Patient has considerable stone. Had significant debris in renal pelvis which was drained and aspirated and sent for culture. Patient had moderate amount of debris in bladder as well. Patient has been voiding without major issue. Pain has improved. Has some increasing urgency and frequency. But has been tolerating. Plan to continue with supportive care. Will likely need antibiotics. We will plan for outpatient follow-up to set up for surgical procedure to treat stone disease. Continue to monitor. We will continue to monitor for patient's improvement over time. Likely may take a few days for patient to considerably improve from issues. (2) Right nephrolithiasis: Admission and Anticipated Discharge Date Admission Date: April 08, 2020 Subjective Postop from stent placement for obstruction issues. Patient has been tolerating well. Has noticed some frequency and urgency. Has not had severe pain in the back and flank. Did have some more severe episodes last night after stent. Does have occasional burning and irritation. No severe episodes or major changes. No new nausea or vomiting. Had tolerated anesthesia without major problems Review of Systems Review of Systems: All systems reviewed & are unremarkable except as noted in HPI & below Physical Exam Physical Exam: General: Alert in no acute distress. HEENT: Normocephalic Atraumatic. Inspection normal. Cranial Nerves 2-12 Grossly intact. Normal inspection of face. Normal inspection of neck. Psychologic: Normal affect. Respiratory: Nonlabored. No use of accessory muscles. No tachypnea or dyspnea. Cardiovascular: No tachycardia Skin: [place] and Dry. No rashes or visible lesions. Extremities/Lymphatics: No edema Abdomen: Soft Non-distended. No rebound or guarding. Results & Data ([facility]) Vital Signs (Past 12 Hours) Vital Signs Temp Pulse Resp BP BP Pulse Ox 04/10/20 07:19 36.5 C 69 18 104/66 92 04/10/20 04:43 37.0 C 67 16 118/72 95 PG Care Time/CCT Total # of Minutes Spent Total Time Spent with Patient: Total time spent is greater than 50% in coordination of care (as documented) at patient's floor/unit and/or counseling patient: Coding Level of Care Code 77413 Subseq Hosp Care Lvl 3 Diagnoses Hydronephrosis with urinary obstruction due to ureteral calculus N13.2 Right nephrolithiasis N20.0
--- NOTE | 2020-04-10 13:23 | Hospitalist Progress Note ---
Date of Service April 10, 2020 Assessment & Plan (1) Hydronephrosis with urinary obstruction due to ureteral calculus: 8 mm distal right obstructing ureteral calculus with moderate hydroureteronephrosis. - S/p cystoscopy, stricture dilation, and stent placement with Dr. Matt on 04/09. - Post-operative care per surgery - Continue cefepime per urology -> Follow cultures -> Urine specimen from 04/09 with no growth so far. Will monitor. - Pain control - Tamsulosin HS (2) Anxiety: No overt symptoms today. - Continue home buspirone, citalopram, and topiramate (3) Glaucoma: - Continue latanoprost and timolol eyedrops. (4) Hepatic steatosis: No inpatient needs. (5) DVT prophylaxis: Heparin 5000 units SQ Q12h Admission and Anticipated Discharge Date Admission Date: April 08, 2020 Subjective Still with pain in the flank and more nausea today. No vomiting. Reports no fevers/chills, chest pain, shortness of breath, or vomiting. Physical Exam Constitutional: WD/WN, vitals as above + acute distress Eyes: EOM intact bilaterally; no conjunctival abnormality ENMT: external ear and nose normal, oropharynx normal Neck: trachea midline, no thyromegaly normal visual inspection Respiratory: normal respiratory effort, lungs clear to auscultation no respiratory distress Cardiovascular: RRR, no murmur, no edema Gastrointestinal (Abdomen): Inspection/Auscultation: abdomen normal to inspection; abdomen not distended Musculoskeletal: no cyanosis or clubbing, extremities motor strength 5/5 Skin: no rashes, warm and dry Neurologic: moves all extremities and awake Psychiatric: Orientation: alert, oriented to person and cooperative Results & Data Results & Data ([facility]) Vital Signs (Past 12 Hours) Vital Signs Temp Pulse Resp BP BP Pulse Ox 04/10/20 07:19 36.5 C 69 18 104/66 92 04/10/20 04:43 37.0 C 67 16 118/72 95 PG Care Time/CCT Total # of Minutes Spent Total Time Spent with Patient: Total time spent is greater than 50% in coordination of care (as documented) at patient's floor/unit and/or counseling patient: Coding Level of Care Code 93747 Subseq Hosp Care Lvl 2 Diagnoses Hydronephrosis with urinary obstruction due to ureteral calculus N13.2 Anxiety F41.9 Glaucoma H40.9 Glaucoma type: unspecified Laterality: unspecified laterality Hepatic steatosis K76.0 DVT prophylaxis Z29.9 (1) Glaucoma Glaucoma type: unspecified Laterality: unspecified laterality Qualified Code(s): H40.9 - Unspecified glaucoma
[2020-04-10] MEDS: TAMSULOSIN HCL 0.4 MG CAP PO SCH (20:13)
[2020-04-10] MEDS: LATANOPROST 0.005% OP SOLN 2.5 ML BTL OPB SCH (20:14)
[2020-04-11] MEDS: HYDROCODONE/ACETAMOPHEN 5/325MG TAB PO PRN ×2 (03:40→10:21)
[2020-04-11 06:46] LABS: Hematocrit (blood only) 37.7 % (37-47); Hemoglobin 12.8 g/dL (12.0-16.0); Mean Corpuscular Hemoglobin 31.8 pg (25-34); Mean Corpuscular Volume 93.5 fL (80-100); Mean Platelet Volume 8.9 fL (7.4-10.4); Platelet Count 270 K/uL (130-400); RDW Coefficient of Variation 13.5 % (11.5-14.5); RDW Standard Deviation 46.3 fL (36.4-46.3); Red Blood Count 4.03 M/uL (4.2-5.4); White Blood Count 9.14 K/uL (4.8-10.8)
[2020-04-11 07:22] LABS: BUN Creatinine Ratio 18.2 (10-20); Calcium 8.2 mg/dl (8.5-10.1); Est GFR (African American) 124.4; Est GFR (Non-African American) 107.3; Potassium 3.6 mmol/L (3.5-5.1)
[2020-04-11] MEDS: CEFEPIME 2,000 MG in SYRINGE 0 ML IV SCH (08:29)
[2020-04-11] MEDS: TIMOLOL MALEATE 0.5% OP SOLN 5 ML BTL OP SCH (08:30)
[2020-04-11] MEDS: CITALOPRAM 40 MG TAB PO SCH (08:30)
[2020-04-11] MEDS: busPIRone 7.5 MG TAB PO SCH (08:31)
[2020-04-11] MEDS: TOPIRAMATE 50 MG TAB PO SCH (08:31)
[2020-04-11] MEDS: HEPARIN SOD 5,000 UNIT/0.5 ML VIAL SQ SCH (08:32)
--- NOTE | 2020-04-11 18:09 | Discharge Summary ---
Date of Service April 11, 2020 Admission HPI Per Admitting Provider The patient is a 40-year-old female with a past medical history including pneumonia, COVID-19 infection requiring hospitalization from 02/10/2020- 02/14/2020, bright red blood per rectum, thyroid nodule, postcholecystectomy diarrhea, glaucoma, anxiety and gastritis. The patient presents to the emergency department with symptoms as noted above. Work-up in the emergency department includes the following abnormal laboratories: WBC 12.95, and glucose 125. Imaging studies: CT of abdomen and pelvis shows 8 mm obstructing calculus in the distal right ureter just above the vesicoureteral junction, causing moderate ri ght hydroureteronephrosis. There is also hepatomegaly and severe hepatic steatosis. Mild colonic diverticulosis without CT evidence of acute diverticulitis. Principal Diagnosis Kidney stone Discharge Exam Constitutional WD/WN, vitals as above no acute distress Eyes EOM intact bilaterally; no conjunctival abnormality ENMT external ear and nose normal, oropharynx normal Neck trachea midline, no thyromegaly normal visual inspection Respiratory normal respiratory effort, lungs clear to auscultation no respiratory distress Cardiovascular RRR, no murmur, no edema Gastrointestinal (Abdomen) Inspection/Auscultation: abdomen normal to inspection; abdomen not distended Musculoskeletal no cyanosis or clubbing, extremities motor strength 5/5 Skin no rashes, warm and dry Neurologic moves all extremities and awake Psychiatric Orientation: alert, oriented to person and cooperative Discharge Data Allergies Allergy/AdvReac Type Severity Reaction Status Date / Time Penicillins Allergy Intermediate HIVES Verified 04/08/20 19:13 Consultations 04/08/20 20:38 ED Decision to Admit Stat 04/08/20 23:40 Consult Urology Routine Procedures Performed Operation Date: 04/09/20 08:00 Actual Procedures p Cystoscopy,Right Ureteroscopy, Retrograde Pyelogram, - Melvin Matt DO s Right Ureteral Stent Insertion(Right) - Melvin Matt DO Ordered Studies 04/08/20 17:46 CT abd pelvis wo con Stat 04/09/20 [place] retrograde includes kub Routine Hospital Course (1) Hydronephrosis with urinary obstruction due to ureteral calculus: 8 mm distal right obstructing ureteral calculus with moderate hydroureteronephrosis. - S/p cystoscopy, stricture dilation, and stent placement with Dr. Matt on 04/09. - Post-operative care per surgery - Continue cefepime per urology -> Follow cultures -> Urine specimen from 04/09 with no growth so far. Will monitor. - Pain control - Tamsulosin HS - Discharged on Cipro, tamsulosin, and pain control. Will follow up with Dr. Matt in a week for stent retrieval and stone destruction. (2) Anxiety: No overt symptoms today. - Continue home buspirone, citalopram, and topiramate (3) Glaucoma: - Continue latanoprost and timolol eyedrops. (4) Hepatic steatosis: No inpatient needs. (5) DVT prophylaxis: Heparin 5000 units SQ Q12h Total Time Total Time Spent Total Time Spent (In Minutes): 35 Discharge Plan Discharge Items Patient Disposition: Home - Self-Care Reason For Visit: DISTAL OBSTRUCTING RIGT URETERAL CALCULUS WITH Discharge Diagnosis: Kidney stone with blockage of the kidney Activity: Resume your previous activity Non-emergency contact: Primary Care Provider and Urologist Call non-emergency contact if: your symptoms worsen, your pain is worsening and your temperature is above 101 Follow-up/Referrals: Aspen Berry MD [Primary Care Provider] - Melvin Matt, [Physician] - (Please call the Urology office on Saturday if you haven't heard from them already.) Diet: Regular Addtl Attending Provider Instructions: Ms. Araujo, You were admitted to the hospital with a kidney stone that was right ureter that was blocking the urine flow. This causes quite a bit of pain. Dr. Matt was able to open the ureter and put in a stent, but he did not get the stone out. We will send you home on antibiotics and a medication to hopefully help the stone pass, along with some pain medication. You will have to see Dr. Matt in the office for him to remove the stone once the irritation/inflammation has calmed down. If you do not hear from the Urology office on Saturday, please call them on Saturday to schedule your follow-up. Please call them or come to the hospital if you have any fevers, chills, nausea, vomiting, or other issues. Pending Studies at Discharge: No Stand-Alone Forms: [facility], Opioid Pain Management, Smoking Cessation Medications and DC Order Prescriptions: New hydrocodone-acetaminophen [[place]] 5-325 mg Tablet 1 tab PO Q4H PRN (Reason: pain) Qty: 20 RF: 0 tamsulosin 0.4 mg Capsule 0.4 mg PO HS Qty: 15 RF: 0 phenazopyridine [Pyridium] 100 mg Tablet 100 mg PO TID PRN (Reason: Burning/pain with urination) Qty: 6 RF: 0 ciprofloxacin HCl 500 mg tablet 500 mg PO BID Qty: 14 RF: 0 ondansetron 4 mg tablet,disintegrating 4 mg PO TID PRN (Reason: nausea and vomiting) 5 Days Qty: 15 RF: 0 Continued multivitamin [One-A-Day Essential] tablet 1 tab PO DAILY RF: 0 timolol maleate 0.5 % drops 1 drops OPB DAILY RF: 0 latanoprost 0.005 % drops 1 drops OPB QPM RF: 0 buspirone 7.5 mg tablet 7.5 mg PO BID RF: 0 topiramate 50 mg tablet 50 mg PO DAILY RF: 0 albuterol sulfate [Ventolin HFA] 90 mcg/actuation HFA aerosol inhaler 2 inh inhalation Q8H PRN (Reason: shortness of breath or wheezing) Qty: 6.7 RF: 3 cholecalciferol (vitamin D3) 5,000 unit capsule 5,000 units PO DAILY Qty: 30 RF: 0 citalopram 40 mg tablet 40 mg PO DAILY Qty: 90 RF: 3 ibuprofen 200 mg Tablet 600 mg PO TID PRN (Reason: Pain) RF: 0 Discharge Orders: Discharge Order (Routine); Ordered 04/11/20 Ordered By: Luis Palacios/Other Patient Handouts: Monitoring Kidney Health Admission Data Admit Date/Time: 04/08/20 21:25 Attending Provider: Luis Peters Admit Provider: Raudel Burgess Primary Care Provider: Aspen Berry V. Other Providers: Luis Peters ; Melvin Matt ; Raudel Burgess Other Interventions: Discharge Summary Assessment (RN) Last Done: 04/11/20 12:23 Coding Level of Care Code D/C Day Management >30 mins Diagnoses Hydronephrosis with urinary obstruction due to ureteral calculus N13.2 Anxiety F41.9 Glaucoma H40.9 Glaucoma type: unspecified Laterality: unspecified laterality Hepatic steatosis K76.0 DVT prophylaxis Z29.9
== END 2020-04-11 13:48 | disposition home or self-care (01) | DRG 661 ==
LOC: ED 17:30 → 3W 21:25 → SUATTDRO 21:25 → 3W 23:12